=== PATIENT | female | born 1985 | race Caucasian/White ===

== ENCOUNTER 2017-05-20 08:53 | Emergency (ER) | payer OTHER ==
[~2017-05-20] VITALS: Ht 170.2 cm; Wt 86.3 kg
[2017-05-20 09:00] VITALS: BP 139/94
--- NOTE | 2017-05-20 09:09 | NUR ---
PT AMBULATED TO BED 4 AT THIS TIME.
--- NOTE | 2017-05-20 09:10 | NUR ---
32F BIB SELF C/O LEFT SIDED HEADACHE, BURNING, RADIATES TO LEFT SIDE OF FACE, 08/08 X 3 DAYS; PT DENIES TRUAMA OR INJURY TO SITE AT THIS TIME; STATES SLIGHT BLURRY VISION TO LEFT EYE, BUT STATES " I CAN SEE RIGHT NOW"; PT C/O NAUSEA/VOMITING/DIARRHEA AT THIS ITME; STATES HAD 3 EPISODES OF VOMITING TODAY, W/ 2 EPISODES OF DIARRHEA; ABDOMEN SOFT, NON-TENDER, ACTIVE BOWEL SOUNDS X 4 QUADRANTS; PT AA&OX4, PERRLA, BL LUNG SOUNDS CLEAR, RR EVEN/UNLABORED, SKIN IS WARM/DRY/INTACT AT THIS TIME; STEADY GAIT; PT RESTING IN BED W/ HOB ELEVATED AND IN LOWEST POSITION; POSITIONED FOR COMFORT; ER MD MADE AWARE OF STATUS. WILL CONTINUE TO MONITOR.
--- NOTE | 2017-05-20 09:11 | NUR ---
ER MD DR. BUNN EVALUATING PT AT BEDSIDE.
[2017-05-20] MEDS ORDERED: PROCHLORPERAZINE 10 MG/2 ML VIAL IVP ONE (09:15)
[2017-05-20] MEDS ORDERED: SUMAtriptan 6 MG/0.5 ML VIAL SUBQ ONE (09:15)
[2017-05-20] MEDS ORDERED: NACL 0.9% 1,000 ML IV ONE (09:15)
[2017-05-20] MEDS ORDERED: diphenhydrAMINE 50 MG/ML VIAL IVP ONE (09:15)
--- NOTE | 2017-05-20 09:28 | NUR ---
WARM BLANKET PROVIDED TO PT FOR COMFORT; PT APPEARS TO BE RESTING COMFORTABLY IN BED; RR EVEN/UNLABORED; WILL CONTINUE TO MONTIOR.
[2017-05-20] MEDS ORDERED: LORazepam 2 MG/ML VIAL IVP ONE (09:50)
--- NOTE | 2017-05-20 10:35 | NUR ---
IV removed, catheter intact and site benign. Applied folded 4x4 gauze and tape to stop bleeding. PT TOLERATED PROCEDURE WELL.
[2017-05-20 10:39] VITALS: BP 129/78
--- NOTE | 2017-05-20 10:39 | NUR ---
Patient discharged with v/s stable. Written and verbal after care instructions given and explained. Patient alert, oriented and verbalized understanding of instructions. Ambulatory with steady gait. All questions addressed prior to discharge. ID band removed. Patient advised to follow up with PMD. Rx of FLEXERIL 10MG TAB, COMPAZINE 10MG TAB & IMITREX 25MG TAB given. Patient educated on indication of medication including possible reaction and side effects. Opportunity to ask questions provided and answered.
== END 2017-05-20 10:39 | disposition home or self-care (01) ==
LOC: MED 08:53
DX: R51 Headache (principal); R11.2 Nausea with vomiting, unspecified; K21.9 Gastro-esophageal reflux disease without esophagitis; F41.9 Anxiety disorder, unspecified; Z88.3 Allergy status to other anti-infective agents
CPT/HCPCS: 81002; 81025; 93005; 96361; 96372; 96374; 96375; 99285; J0780; J1200; J2060; J3030; J7030; 99284

== ENCOUNTER 2017-06-20 18:08 | Emergency (ER) | payer OTHER ==
[~2017-06-20] VITALS: Ht 167.6 cm; Wt 86.2 kg
[2017-06-20 18:23] VITALS: BP 131/79
--- NOTE | 2017-06-20 18:30 | NUR ---
PATIENT PRESENTS TO ED WITH C/O LOWER ABD PAIN RADIATING TO HER BACK SINCE WEDNESDAY , WITH ANXIETY , DIARRHEA AND N/V SINCE 0700HOURS. DENIES DIARRHEA; SKIN IS PINK/WARM/DRY; AAOX4 WITH EVEN AND STEADY GAIT; LUNGS CLEAR BL; HR EVEN AND REGULAR; PT DENIES ANY FEVER, CP, SOB, OR COUGH AT THIS TIME; PATIENT STATES PAIN OF 8/10 AT THIS TIME; VSS; PATIENT POSITIONED FOR COMFORT; HOB ELEVATED; BEDRAILS UP X2; BED DOWN. ER MD MADE AWARE OF PT STATUS.
[2017-06-20] MEDS ORDERED: NACL 0.9% 1,000 ML IV ONE (18:45)
[2017-06-20] MEDS ORDERED: MORPHINE SULFATE 4 MG/ML SYR IVP ONE (18:45)
[2017-06-20] MEDS ORDERED: ONDANSETRON 4 MG/2 ML VIAL IVP ONE (18:45)
[2017-06-20 18:59] LABS: BASOPHILS # (AUTO) 0.4 K/uL (0.00-0.22); EOSINOPHILS # (AUTO) 0.3 K/uL (0-0.4); HEMOGLOBIN 15.3 g/dL (12.0-16.0); MEAN CORPUSCULAR HEMOGLOBIN 28 pg (27-31); MEAN CORPUSCULAR HGB CONC 33 g/dL (33-37); MEAN CORPUSCULAR VOLUME 87 fL (80-94); MONOCYTES # (AUTO) 0.8 K/uL (0.8-1.0); NEUTROPHILS # (AUTO) 7.4 K/uL (1.8-7.7); PLATELET COUNT (AUTO) 369 K/uL (140-450); RED BLOOD CELL COUNT(AUTO) 5.39 MIL/uL (4.20-5.40); WHITE BLOOD COUNT (AUTO) 11.9 K/uL (4.8-10.8)
[2017-06-20 19:08] LABS: APPEARANCE,URINE HAZY (CLEAR); BILIRUBIN,URINE NEGATIVE (NEGATIVE); BLOOD, URINE NEGATIVE (NEGATIVE); COLOR,URINE YELLOW (YELLOW); LEUKOCYTE ESTERASE ,URINE TRACE (NEGATIVE); NITRITE, URINE NEGATIVE (NEGATIVE); PH,URINE 8.5 (5.0-9.0); PROTEIN,URINE TRACE (NEGATIVE); UGLUCOSE NEGATIVE (NEGATIVE); UROBILINOGEN,URINE 0.2 EU/dL (0.2 - 1)
[2017-06-20 19:14] LABS: ANION GAP 11.6 (8-16); CALCIUM 9.2 mg/dL (8.5-10.1); CREATININE 0.9 mg/dL (0.6-1.3); POTASSIUM 3.6 mmol/L (3.5-5.1); TOTAL BILIRUBIN 0.9 mg/dL (0.0-1.0); TOTAL PROTEIN, SERUM 7.8 g/dL (6.4-8.2)
--- NOTE | 2017-06-20 19:15 | NUR ---
REPORT GIVEN RN PIN
--- NOTE | 2017-06-20 19:16 | NUR ---
GOT REPORT FROM MARILIA GONZALES. PT. C/O PAIN, DR. BISWAS MADE AWARE.
[2017-06-20] MEDS ORDERED: LORazepam 1 MG TAB PO ONE (19:20)
[2017-06-20] MEDS ORDERED: HYDROmorphone 1 MG/ML AMP IVP ONE ×2 (19:20→20:55)
[2017-06-20 19:48] LABS: BACTERIA,URINE 1-9 (FEW) /HPF (None Seen)
[2017-06-20 19:49] LABS: SQUAMOUS EPITHELIAL CELL,UR 4-10 (MOD) /LPF (0-3 (FEW))
--- NOTE | 2017-06-20 21:47 | NUR ---
Patient discharged with v/s stable. Written and verbal after care instructions given and explained. Patient alert, oriented and verbalized understanding of instructions. Ambulatory with steady gait. All questions addressed prior to discharge. ID band removed. Patient advised to follow up with PMD. Rx of NORCO 10/325 MG, ATIVAN 1 MG given. Patient educated on indication of medication including possible reaction and side effects. Opportunity to ask questions provided and answered.
[2017-06-20 21:51] VITALS: BP 131/82
== END 2017-06-20 21:47 | disposition home or self-care (01) ==
LOC: MED 18:08
DX: N83.201 Unspecified ovarian cyst, right side (principal); F41.9 Anxiety disorder, unspecified; K21.9 Gastro-esophageal reflux disease without esophagitis; Z88.1 Allergy status to other antibiotic agents; Z88.2 Allergy status to sulfonamides
CPT/HCPCS: 36415; 74176; 76705; 76830; 80053; 81001; 81025; 83690; 85025; 96361; 96374; 96375; 96376; 99285; J1170; J2270; J2405; J7030

== ENCOUNTER 2017-06-25 20:13 | Emergency (ER) | payer OTHER ==
[~2017-06-25] VITALS: Ht 167.6 cm; Wt 86.2 kg
[2017-06-25 20:46] VITALS: BP 131/75
[2017-06-25 21:41] LABS: APPEARANCE,URINE HAZY (CLEAR); BILIRUBIN,URINE NEGATIVE (NEGATIVE); BLOOD, URINE NEGATIVE (NEGATIVE); COLOR,URINE YELLOW (YELLOW); LEUKOCYTE ESTERASE ,URINE TRACE (NEGATIVE); NITRITE, URINE NEGATIVE (NEGATIVE); PH,URINE 7.5 (5.0-9.0); PROTEIN,URINE NEGATIVE (NEGATIVE); UGLUCOSE NEGATIVE (NEGATIVE); UROBILINOGEN,URINE 0.2 EU/dL (0.2 - 1)
[2017-06-25 21:57] LABS: BACTERIA,URINE 1+ /HPF (None Seen); RBC,URINE 0-5 /HPF (0-5); URINE AMORPHOUS PHOSPHATES 2+ /HPF (None Seen); WBC,URINE 0-5 /HPF (0-5)
[2017-06-25 22:34] LABS: BASOPHILS # (AUTO) 0.3 K/uL (0.00-0.22); BASOPHILS % (AUTO) 2.5 % (0.0-2.0); EOSINOPHILS # (AUTO) 0.2 K/uL (0-0.4); EOSINOPHILS % (AUTO) 2.1 % (0.0-4.0); HEMATOCRIT 45.2 % (36-48); LYMPHOCYTES # (AUTO) 2.2 K/uL (2.5-16.5); LYMPHOCYTES % (AUTO) 21.1 % (20.5-51.1); MEAN CORPUSCULAR HEMOGLOBIN 29 pg (27-31); MEAN CORPUSCULAR HGB CONC 33 g/dL (33-37); MEAN CORPUSCULAR VOLUME 87 fL (80-94); MONOCYTES # (AUTO) 0.5 K/uL (0.8-1.0); MONOCYTES % (AUTO) 4.4 % (1.7-9.3); NEUTROPHILS # (AUTO) 7.4 K/uL (1.8-7.7); NEUTROPHILS % (AUTO) 69.9 % (42.2-75.2); PLATELET COUNT (AUTO) 335 K/uL (140-450); RED BLOOD CELL COUNT(AUTO) 5.18 MIL/uL (4.20-5.40); RED CELL DISTRIBUTION WIDTH 12.4 % (11.6-13.7); WHITE BLOOD COUNT (AUTO) 10.6 K/uL (4.8-10.8)
[2017-06-25 22:56] LABS: ANION GAP 11.7 (8-16); CALCIUM 8.4 mg/dL (8.5-10.1); CARBON DIOXIDE 28.4 mmol/L (21-32); CREATININE 0.7 mg/dL (0.6-1.3); POTASSIUM 4.1 mmol/L (3.5-5.1); TOTAL BILIRUBIN 0.9 mg/dL (0.0-1.0); TOTAL PROTEIN, SERUM 8.1 g/dL (6.4-8.2)
--- NOTE | 2017-06-26 02:52 | NUR ---
AMBULATED TO ER BED 8
--- NOTE | 2017-06-26 02:55 | NUR ---
32Y F BIB SELF C/O ABDOMINAL PAIN X 1 WK. PT. WAS SEEN ON 06/20 WITH PANIC ATTACKS. HX. ANXIETY. PT DENIES ANY N/V/D, SOB, CP AT THE MOMENT. BREATHING IS UNLABORED AND CLEAR BILAT. AAOX4.
--- NOTE | 2017-06-26 03:00 | NUR ---
Patient being evaluated by physician at bedside.
[2017-06-26] MEDS ORDERED: ONDANSETRON 4 MG ODT PO ONE (03:05)
[2017-06-26] MEDS ORDERED: LORazepam 1 MG TAB PO ONE (03:05)
[2017-06-26] MEDS ORDERED: KETOROLAC 60 MG/2 ML VIAL IM ONE (03:05)
[2017-06-26] MEDS ORDERED: HYDROmorphone PFS 2 MG/ML SYR IVP ONE (05:00)
--- NOTE | 2017-06-26 05:00 | NUR ---
FEMALE CHAPERONED FOR DR. DUNN DURING PELVIC EXAM
[2017-06-26] MEDS ORDERED: cefTRIAXone 250 MG VIAL ONE (05:46)
--- NOTE | 2017-06-26 06:01 | NUR ---
Patient discharged with v/s stable. Written and verbal after care instructions given and explained. Patient alert, oriented and verbalized understanding of instructions. Ambulatory with steady gait. All questions addressed prior to discharge. ID band removed. Patient advised to follow up with PMD. Rx of DIFLUCAN 150MG AND FLAGYL 500MG, DOXYCYCLINE 100MG, NORCO 5/325MG given. Patient educated on indication of medication including possible reaction and side effects. Opportunity to ask questions provided and answered.
--- NOTE | 2017-06-26 06:01 | NUR ---
IV removed, catheter intact and site benign. Applied folded 4x4 gauze and tape to stop bleeding.
[2017-06-26 06:02] VITALS: BP 122/71
== END 2017-06-26 06:02 | disposition home or self-care (01) ==
LOC: MED 20:13
DX: N73.9 Female pelvic inflammatory disease, unspecified (principal); B37.3 Candidiasis of vulva and vagina; Z88.1 Allergy status to other antibiotic agents; Z88.2 Allergy status to sulfonamides; K21.9 Gastro-esophageal reflux disease without esophagitis; Z90.49 Acquired absence of other specified parts of digestive tract
CPT/HCPCS: 36415; 80053; 81001; 81025; 82150; 83690; 85025; 87210; 96365; 96372; 96375; 99284; J0696; J1170; J1885; J7060; S0119

== ENCOUNTER 2019-02-17 17:32 | Emergency (ER) | payer OTHER ==
[~2019-02-17] VITALS: Ht 167.6 cm; Wt 86.2 kg
[2019-02-17 17:50] VITALS: BP 121/81
--- NOTE | 2019-02-17 17:55 | NUR ---
PT TRIAGED AND SENT TO ER LOBBY, URINE CUP GIVEN.
--- NOTE | 2019-02-17 20:09 | NUR ---
PT WAS CALLED WITH NO ANSWER, PT LWBS
--- NOTE | 2019-02-17 20:20 | NUR ---
PT WAS CALLED FROM THE LOBBY FOR THE 2ND TIME BUT NO RESPONSE, PT LWBS
--- NOTE | 2019-02-17 20:22 | NUR ---
PATIENT LEFT WITHOUT BEING SEEN BY DR. SHAH. NO FURTHER CARE PROVIDED FOR PATIENT.
== END 2019-02-17 20:09 | disposition left against medical advice (07) ==
LOC: MED 17:32
DX: R10.2 Pelvic and perineal pain (principal); Z53.21 Procedure and treatment not carried out due to patient leaving prior to being seen by health care provider

== ENCOUNTER 2019-03-20 21:58 | Emergency (ER) | payer OTHER ==
[~2019-03-20] VITALS: Ht 167.6 cm; Wt 79.4 kg
[2019-03-20 22:02] VITALS: BP 117/80
--- NOTE | 2019-03-20 22:02 | NUR ---
Cayetano gallagher in [facility] - 03/20/19 at 2212 by YULISA TO BED # 02 AMBULATORY , REPORT GIVEN TO LISA CAPELLAN
--- NOTE | 2019-03-20 22:07 | NUR ---
PT AMBULATED TO BED 4.
--- NOTE | 2019-03-20 22:16 | NUR ---
BIB SELF WITH REPORT OF ANXIETY AND ABD PAIN WITH N/V FOR 3 DAYS. STATES IT IS WORSE TODAY AND IS ACCOMPANIED BY DIARRHEA. STATES SHE HAS VOMITED 2X TODAY. REPORTS 10/10 PELVIC PAIN AND A HEADACHE. DENIES FEVER, SOB, CP. BED IN LOW LOCKED POSITION, ERMD MADE AWARE OF STATUS.
--- NOTE | 2019-03-20 23:17 | NUR ---
DR ROSALES AT BEDSIDE.
[2019-03-20] MEDS ORDERED: ONDANSETRON 4 MG ODT PO ONE (23:20)
[2019-03-20] MEDS ORDERED: KETOROLAC 60 MG/2 ML VIAL IM ONE (23:20)
[2019-03-20 23:41] LABS: BASOPHILS % (AUTO) 0.2 % (0.0-2.0); EOSINOPHILS # (AUTO) 0.2 K/uL (0-0.4); EOSINOPHILS % (AUTO) 2.8 % (0.0-4.0); HEMATOCRIT 41.4 % (36-48); LYMPHOCYTES # (AUTO) 2.6 K/uL (2.5-16.5); LYMPHOCYTES % (AUTO) 28.2 % (20.5-51.1); MEAN CORPUSCULAR HEMOGLOBIN 29 pg (27-31); MEAN CORPUSCULAR HGB CONC 34 g/dL (33-37); MEAN CORPUSCULAR VOLUME 86.4 fL (80-94); MONOCYTES # (AUTO) 0.7 K/uL (0.8-1.0); MONOCYTES % (AUTO) 7.9 % (1.7-9.3); NEUTROPHILS # (AUTO) 5.5 K/uL (1.8-7.7); NEUTROPHILS % (AUTO) 60.9 % (42.2-75.2); PLATELET COUNT (AUTO) 304 K/uL (140-450); RED BLOOD CELL COUNT(AUTO) 4.79 MIL/uL (4.20-5.40); RED CELL DISTRIBUTION WIDTH 13.1 % (11.6-13.7); WHITE BLOOD COUNT (AUTO) 9.1 K/uL (4.8-10.8)
--- NOTE | 2019-03-21 00:40 | NUR ---
PATIENT COMPLAINING OF PAIN, DR ROSALES MADE AWARE.
--- NOTE | 2019-03-21 00:45 | NUR ---
DR ROSALES AT BEDSIDE.
[2019-03-21] MEDS ORDERED: fentaNYL 0.05 MG/ML VIAL IM ONE (01:00)
[2019-03-21 01:17] VITALS: BP 117/80
--- NOTE | 2019-03-21 01:18 | NUR ---
Patient discharged with v/s stable. Written and verbal after care instructions given and explained. Patient alert, oriented and verbalized understanding of instructions. Ambulatory with steady gait. All questions addressed prior to discharge. ID band removed. Patient advised to follow up with PMD. Rx of TRAMADOL, MOTRIN given. Patient educated on indication of medication including possible reaction and side effects. Opportunity to ask questions provided and answered.
== END 2019-03-21 01:17 | disposition home or self-care (01) ==
LOC: MED 21:58
DX: N83.202 Unspecified ovarian cyst, left side (principal); K21.9 Gastro-esophageal reflux disease without esophagitis; F41.9 Anxiety disorder, unspecified; F32.9 Major depressive disorder, single episode, unspecified; M79.7 Fibromyalgia; Z88.2 Allergy status to sulfonamides; Z88.8 Allergy status to other drugs, medicaments and biological substances
CPT/HCPCS: 36415; 76856; 85025; 96372; 99284; J1885; J3010; Q0092; Q0162

== ENCOUNTER 2019-04-09 03:46 | Emergency (ER) | payer OTHER ==
[~2019-04-09] VITALS: Ht 167.6 cm; Wt 82.1 kg
[2019-04-09 03:49] VITALS: BP 125/85
--- NOTE | 2019-04-09 03:52 | NUR ---
TO ED 07 WITH STEADY GAIT, REPORT TO MARILIA BUSTAMANTE.
--- NOTE | 2019-04-09 04:05 | NUR ---
34 YO F BIB SELF PRESENTS TO ED C/O 09/07 BILATERAL LOWER ABD PAIN THAT RADIATES INTO LOWER RIGHT BACK ACCOMPANIED BY N/V R/T OVARIAN CYSTS X 3 HOURS. PT STATES SHE WAS SEEN IN [place] ED 2 WEEKS AGO FOR SIMILAR S/SX AND WAS DIAGNOSED WITH OVARIAN CYSTS. SHE REPORTS THAT SHE WAS SCHEDULED FOR SURGERY ON WEDNESDAY WITH HER OB DOCTOR BUT THE PROCEDURE WAS POSTPONED. SHE WAS ALSO TOLD TO RETURN TO THE ER IF THE PAIN BECAME WORSE. PT STATES SHE TOOK TRAMADOL 50 MG WHEN THE PAIN BEGAN AROUND 0100 AND IT HAS NOT BEEN EFFECTIVE. PT ALSO REPORTS N/V. -- LMP: YESTERDAY -- PMH: FIBROMYALGIA, DEPRESSION, ANXIETY
[2019-04-09] MEDS ORDERED: ONDANSETRON 4 MG/2 ML VIAL IVP ONE (04:10)
[2019-04-09] MEDS ORDERED: NACL 0.9% 1,000 ML IV ONE (04:10)
[2019-04-09] MEDS ORDERED: MORPHINE SULFATE 4 MG/ML SYR IVP ONE (04:10)
--- NOTE | 2019-04-09 04:30 | NUR ---
PT RECEIVED 2 MG IVP ZOFRAN FOR N/V AND 4 MG IVP MORPHINE FOR 10/10 PAIN. WILL CONTINUE TO MONITOR FOR EFFECTIVENESS.
--- NOTE | 2019-04-09 04:33 | NUR ---
LAB AND URINE SPECIMEN WALKED TO LAB BY RN, GIVEN TO DNART LIMITADA.
--- NOTE | 2019-04-09 04:33 | NUR ---
LABS DRAWN AT BEDSIDE BY RN.
[2019-04-09 04:38] LABS: BASOPHILS % (AUTO) 0.3 % (0.0-2.0); EOSINOPHILS # (AUTO) 0.2 K/uL (0-0.4); EOSINOPHILS % (AUTO) 1.8 % (0.0-4.0); HEMATOCRIT 37.6 % (36-48); HEMOGLOBIN 12.9 g/dL (12.0-16.0); LYMPHOCYTES # (AUTO) 2.1 K/uL (2.5-16.5); LYMPHOCYTES % (AUTO) 21.2 % (20.5-51.1); MEAN CORPUSCULAR HEMOGLOBIN 29 pg (27-31); MEAN CORPUSCULAR HGB CONC 34 g/dL (33-37); MEAN CORPUSCULAR VOLUME 85.6 fL (80-94); MONOCYTES # (AUTO) 0.8 K/uL (0.8-1.0); NEUTROPHILS # (AUTO) 6.8 K/uL (1.8-7.7); NEUTROPHILS % (AUTO) 68.7 % (42.2-75.2); PLATELET COUNT (AUTO) 294 K/uL (140-450); RED BLOOD CELL COUNT(AUTO) 4.39 MIL/uL (4.20-5.40); RED CELL DISTRIBUTION WIDTH 12.7 % (11.6-13.7); WHITE BLOOD COUNT (AUTO) 9.9 K/uL (4.8-10.8)
--- NOTE | 2019-04-09 04:45 | NUR ---
US AT BEDSIDE.
[2019-04-09 04:47] LABS: APPEARANCE,URINE HAZY (CLEAR); BILIRUBIN,URINE NEGATIVE (NEGATIVE); BLOOD, URINE NEGATIVE (NEGATIVE); COLOR,URINE YELLOW (YELLOW); LEUKOCYTE ESTERASE ,URINE 2+ (NEGATIVE); NITRITE, URINE NEGATIVE (NEGATIVE); UGLUCOSE NEGATIVE (NEGATIVE)
[2019-04-09 04:49] LABS: ANION GAP 11.4 (8-16); CARBON DIOXIDE 27.4 mmol/L (21-32); CREATININE 0.6 mg/dL (0.6-1.3); POTASSIUM 3.8 mmol/L (3.5-5.1)
[2019-04-09 04:55] LABS: ALBUMIN 3.2 g/dL (3.4-5.0); TOTAL BILIRUBIN 0.9 mg/dL (0.0-1.0)
[2019-04-09 04:56] LABS: RBC,URINE 0-5 /HPF (0-5)
--- NOTE | 2019-04-09 05:11 | NUR ---
PT IS CRYING AND REPORTS 09/07 PAIN. MORPHINE INEFFECTIVE. PT REPORTS ZOFRAN RELIEVED NAUSEA. Addendum: 04/09/19 at 0533 by [facility] DR. PHILLIP MADE AWARE.
[2019-04-09] MEDS ORDERED: KETOROLAC 15 MG/ML VIAL IVP ONE (05:40)
--- NOTE | 2019-04-09 05:45 | NUR ---
PT RECEIVED TORADOL 15 MG IVP FOR 10/10 PAIN. WILL CONTINUE TO MONITOR.
[2019-04-09] MEDS ORDERED: cefTRIAXone 1,000 MG VIAL ONE (05:53)
[2019-04-09] MEDS ORDERED: fentaNYL 0.05 MG/ML VIAL IVP ONE (06:20)
--- NOTE | 2019-04-09 06:20 | NUR ---
TORADOL NOT EFFECTIVE. PT REPORTS [address] PHILLIP TO SEE PATIENT.
--- NOTE | 2019-04-09 06:33 | NUR ---
PT RECEIVED 0.025 MG IVP FENTANYL FOR 10/10 PAIN. WILL CONTINUE TO MONITOR FOR EFFECTIVENESS.
--- NOTE | 2019-04-09 06:55 | NUR ---
FENTANYL EFFECTIVE. PT REPORTS 4/10 PAIN. READY FOR DISCHARGE.
[2019-04-09 07:00] VITALS: BP 107/68
--- NOTE | 2019-04-09 07:00 | NUR ---
Patient discharged with v/s stable. Written and verbal after care instructions given and explained. Patient alert, oriented and verbalized understanding of instructions. Ambulatory with steady gait. All questions addressed prior to discharge. ID band removed. Patient advised to follow up with PMD. Rx of Ciproflaxacin and Tylenol given. Patient educated on indication of medication including possible reaction and side effects. Opportunity to ask questions provided and answered.
== END 2019-04-09 07:00 | disposition home or self-care (01) ==
LOC: MED 03:46
DX: N12 Tubulo-interstitial nephritis, not specified as acute or chronic (principal); K21.9 Gastro-esophageal reflux disease without esophagitis; M79.7 Fibromyalgia; F32.9 Major depressive disorder, single episode, unspecified; F41.9 Anxiety disorder, unspecified; Z88.2 Allergy status to sulfonamides; Z88.8 Allergy status to other drugs, medicaments and biological substances
CPT/HCPCS: 36415; 76856; 80053; 81001; 81025; 85025; 87086; 93976; 96361; 96365; 96375; 99284; J0696; J1885; J2270; J2405; J3010; J7030; J7060; Q0092

== ENCOUNTER 2019-04-11 08:55 | Emergency (ER) | payer OTHER ==
[~2019-04-11] VITALS: Ht 167.6 cm; Wt 81.6 kg
[2019-04-11 09:09] VITALS: BP 131/87
--- NOTE | 2019-04-11 09:22 | NUR ---
c/o recurring right flank pain radiating suprapubic area with dysuria burning sharp pain upon voiding--- admits to upcoming appt with earth mover possible ovary removal and D&C
--- NOTE | 2019-04-11 10:27 | NUR ---
pt to radiology via wheelchair
[2019-04-11 10:40] LABS: BASOPHILS % (AUTO) 0.3 % (0.0-2.0); EOSINOPHILS # (AUTO) 0.3 K/uL (0-0.4); EOSINOPHILS % (AUTO) 3.7 % (0.0-4.0); HEMATOCRIT 39.5 % (36-48); HEMOGLOBIN 13.4 g/dL (12.0-16.0); LYMPHOCYTES # (AUTO) 2.4 K/uL (2.5-16.5); LYMPHOCYTES % (AUTO) 30.1 % (20.5-51.1); MEAN CORPUSCULAR HEMOGLOBIN 29 pg (27-31); MEAN CORPUSCULAR HGB CONC 34 g/dL (33-37); MEAN CORPUSCULAR VOLUME 85.8 fL (80-94); MONOCYTES # (AUTO) 0.8 K/uL (0.8-1.0); MONOCYTES % (AUTO) 10.3 % (1.7-9.3); NEUTROPHILS # (AUTO) 4.5 K/uL (1.8-7.7); NEUTROPHILS % (AUTO) 55.6 % (42.2-75.2); PLATELET COUNT (AUTO) 289 K/uL (140-450); RED CELL DISTRIBUTION WIDTH 12.6 % (11.6-13.7); WHITE BLOOD COUNT (AUTO) 8.1 K/uL (4.8-10.8)
[2019-04-11 10:52] LABS: ANION GAP 11.5 (8-16); CARBON DIOXIDE 27.7 mmol/L (21-32); CREATININE 0.7 mg/dL (0.6-1.3); POTASSIUM 4.2 mmol/L (3.5-5.1)
[2019-04-11 10:58] LABS: ALBUMIN 3.4 g/dL (3.4-5.0); TOTAL BILIRUBIN 0.4 mg/dL (0.0-1.0)
--- NOTE | 2019-04-11 11:00 | NUR ---
continue to wait for dispo---pt had been asleep when approached, easy to awaken admits to pain right flank when asked---md notified
[2019-04-11 11:28] LABS: APPEARANCE,URINE CLEAR (CLEAR); BILIRUBIN,URINE NEGATIVE (NEGATIVE); BLOOD, URINE NEGATIVE (NEGATIVE); COLOR,URINE YELLOW (YELLOW); LEUKOCYTE ESTERASE ,URINE 1+ (NEGATIVE); NITRITE, URINE NEGATIVE (NEGATIVE); UGLUCOSE NEGATIVE (NEGATIVE)
[2019-04-11 12:00] LABS: RBC,URINE NONE SEEN /HPF (0-5); WBC,URINE 0-5 /HPF (0-5); YEAST,URINE Rare /HPF (None Seen)
[2019-04-11 12:16] VITALS: BP 131/87
--- NOTE | 2019-04-11 12:16 | NUR ---
Patient discharged with v/s stable. Written and verbal after care instructions given and explained. Patient alert, oriented and verbalized understanding of instructions. Ambulatory with steady gait. All questions addressed prior to discharge. ID band removed. Patient advised to follow up with PMD. Rx of mag citrate/miralax given. Patient educated on indication of medication including possible reaction and side effects. Opportunity to ask questions provided and answered.
== END 2019-04-11 12:16 | disposition home or self-care (01) ==
LOC: MED 08:55
DX: K59.00 Constipation, unspecified (principal); K21.9 Gastro-esophageal reflux disease without esophagitis; E07.9 Disorder of thyroid, unspecified; Z88.2 Allergy status to sulfonamides; Z88.8 Allergy status to other drugs, medicaments and biological substances
CPT/HCPCS: 36415; 74021; 80053; 81001; 81025; 83690; 84703; 85025; 87086; 99284

== ENCOUNTER 2019-09-21 19:00 | Emergency (ER) | payer OTHER ==
[~2019-09-21] VITALS: Ht 167.6 cm; Wt 78.0 kg
[2019-09-21 19:10] VITALS: BP 111/86
[2019-09-21 20:16] LABS: BASOPHILS % (AUTO) 0.2 % (0.0-2.0); EOSINOPHILS # (AUTO) 0.2 K/uL (0-0.4); HEMATOCRIT 43.5 % (36-48); HEMOGLOBIN 14.5 g/dL (12.0-16.0); LYMPHOCYTES # (AUTO) 1.9 K/uL (2.5-16.5); LYMPHOCYTES % (AUTO) 25.2 % (20.5-51.1); MEAN CORPUSCULAR HEMOGLOBIN 29 pg (27-31); MEAN CORPUSCULAR HGB CONC 33 g/dL (33-37); MONOCYTES # (AUTO) 0.5 K/uL (0.8-1.0); MONOCYTES % (AUTO) 6.9 % (1.7-9.3); NEUTROPHILS # (AUTO) 4.8 K/uL (1.8-7.7); NEUTROPHILS % (AUTO) 64.7 % (42.2-75.2); PLATELET COUNT (AUTO) 320 K/uL (140-450); RED BLOOD CELL COUNT(AUTO) 4.95 MIL/uL (4.20-5.40); RED CELL DISTRIBUTION WIDTH 12.9 % (11.6-13.7); WHITE BLOOD COUNT (AUTO) 7.4 K/uL (4.8-10.8)
[2019-09-21] MEDS ORDERED: MORPHINE SULFATE 4 MG/ML SYR IVP ONE ×2 (20:20→21:35)
[2019-09-21] MEDS ORDERED: NACL 0.9% 1,000 ML IV ONE (20:20)
[2019-09-21] MEDS ORDERED: ONDANSETRON 4 MG/2 ML VIAL IVP ONE (20:20)
--- NOTE | 2019-09-21 20:30 | NUR ---
34 Y/O F PRESENTS TO ED WITH C/O N/V/D X1 MONTH, WORSENING WITHIN LAST WEEK. AAOX4. PER PT "I HAD THE STOMACH FLU A MONTH AGO AND IT JUST WONT GO AWAY." PT HAS RLQ PAIN RELATED TO OVARIAN CYST, 9/10 PAIN. +APPETITE CHANGES. ABDOMEN NON-TENDER. BOWELS SOUNDS PRESENT X4. PT ATTACHED TO MONITORING SYSTEM. BEDRAILS X2 UP. WILL CONTINUE TO MONITOR.
[2019-09-21 20:31] LABS: ANION GAP 13.9 (8-16); CARBON DIOXIDE 26.9 mmol/L (21-32); CREATININE 0.6 mg/dL (0.6-1.3); POTASSIUM 3.8 mmol/L (3.5-5.1)
[2019-09-21 20:35] LABS: ALBUMIN 4.1 g/dL (3.4-5.0); TOTAL BILIRUBIN 1.3 mg/dL (0.0-1.0)
--- NOTE | 2019-09-21 20:51 | NUR ---
PT O2 SATURATION AT 92% ON RA. PT PLACED ON 2L O2 VIA NASAL CANNULA. O2 SATURATION INCREASED AND MAINTAINED AT 98%.
--- NOTE | 2019-09-21 21:05 | NUR ---
PT PAIN LEVEL UNCHANGED, STILL 9/10 PAIN. ERMD MADE AWARE.
--- NOTE | 2019-09-21 21:36 | NUR ---
PT TAKEN TO CT VIA WHEELCHAIR.
--- NOTE | 2019-09-21 21:50 | NUR ---
PT RETURN FROM CT
--- NOTE | 2019-09-21 23:00 | NUR ---
PT CRYING. STILL C/O INCREASED PAIN. ERMD MADE AWARE.
[2019-09-21] MEDS ORDERED: KETAMINE 10 MG/ML UD SYR **ER IVP ONE (23:50)
--- NOTE | 2019-09-22 00:01 | NUR ---
Dr. Gibson examining patient.
--- NOTE | 2019-09-22 00:48 | NUR ---
LAVAGE PROCEDURE PERFORMED ON PT L EAR
[2019-09-22 01:01] VITALS: BP 131/45
--- NOTE | 2019-09-22 01:22 | NUR ---
Patient discharged with v/s stable. Written and verbal after care instructions given and explained. Patient alert, oriented and verbalized understanding of instructions. Ambulatory with steady gait.Pt driven home by . All questions addressed prior to discharge. ID band removed. Patient advised to follow up with PMD. Rx of norco given. Patient educated on indication of medication including possible reaction and side effects. Opportunity to ask questions provided and answered.
--- NOTE | 2019-09-22 08:44 | NUR ---
Late entry. Confirmed with RN that 1000ml 0.9 NS IV completed at [id number]
== END 2019-09-22 01:22 | disposition home or self-care (01) ==
LOC: MED 19:00
DX: N83.201 Unspecified ovarian cyst, right side (principal); R19.7 Diarrhea, unspecified; K21.9 Gastro-esophageal reflux disease without esophagitis; Z87.42 Personal history of other diseases of the female genital tract; Z88.1 Allergy status to other antibiotic agents; Z88.8 Allergy status to other drugs, medicaments and biological substances; Z88.2 Allergy status to sulfonamides; Z98.890 Other specified postprocedural states
CPT/HCPCS: 36415; 74176; 80053; 81025; 83690; 85025; 96361; 96374; 96375; 96376; 99284; J2270; J2405; J7030

== ENCOUNTER 2019-09-23 19:45 | Emergency (ER) | payer OTHER ==
[~2019-09-23] VITALS: Ht 167.6 cm; Wt 77.1 kg
[2019-09-23 19:50] VITALS: BP 126/84
--- NOTE | 2019-09-23 19:53 | NUR ---
to lobby a/w bed ambulatory
--- NOTE | 2019-09-23 20:11 | NUR ---
PT AMBULATED TO BED 08.
--- NOTE | 2019-09-23 20:15 | NUR ---
34 Y/O FEMALE PRESENTS TO ED, C/O OF DIZZINESS. PT STATES SHE WAS PRESCRIBED KETAMINE LAST WEDNESDAY AND TOOK A DOSE PRIOR TO FEELING THE DIZZINESS. PT DENIES ANY HEADACHE. PT DENIES ANY LOC. PT VSS. ERMD AWARE. WILL CONTINUE TO MONITOR.
[2019-09-23 20:50] VITALS: BP 121/71
--- NOTE | 2019-09-23 20:50 | NUR ---
PT DISCHARGED WITH PAPERWORK. RX ATARAX. EDUCATED PT REGARDING MEDICATION AND S/E. EDUCATED PT REGARDING D/C DIAGNOSIS AND INSTRUCTIONS. PT VERBALIZED UNDERSTANDING OF TEACHING. TOLD PT TO FOLLOW UP WITH PCP AND WHEN TO RETURN TO ED. PT VSS. ALL QUESTIONS ANSWERED.
== END 2019-09-23 20:50 | disposition home or self-care (01) ==
LOC: MED 19:45
DX: N83.201 Unspecified ovarian cyst, right side (principal); K21.9 Gastro-esophageal reflux disease without esophagitis; R06.02 Shortness of breath; Z88.1 Allergy status to other antibiotic agents; Z88.8 Allergy status to other drugs, medicaments and biological substances; Z90.49 Acquired absence of other specified parts of digestive tract; Z98.890 Other specified postprocedural states; Z86.39 Personal history of other endocrine, nutritional and metabolic disease
CPT/HCPCS: 81002; 81025; 99283

== ENCOUNTER 2019-10-14 08:30 | Emergency (ER) | payer SELFPAY ==
[~2019-10-14] VITALS: Ht 167.6 cm; Wt 80.7 kg
[2019-10-14 08:43] VITALS: BP 108/77
--- NOTE | 2019-10-14 08:51 | NUR ---
PATIENT AMBULATED WITH ASSISTANCE TO BED 3.
--- NOTE | 2019-10-14 09:14 | NUR ---
34/F C/O CONTINUOUS PELVIC AND BACK PAIN SINCE AGE 16 DUE TO ENDOMETROSIS BUT WORSENING AFTER LAPAROSCOPIC SURGERY WITH REMOVAL OF OVARIAN CYST IN 04/2019. STATES RT SIDED PELVIC PAIN. PT ADDS SHE HAD A FALL OCTOBER 01 WHERE SHE LANDED ON HER COCCYX AND BACK, DENIES LOC. STATES HAS BEEN HAVING N/V/D AND DIZZINESS SINCE THE FALL. ESTIMATES NONBLOODY 5X VOMITTING AND 10X DIARRHEA ON WORST DAYS. ALSO STATES HAS EPIGASTRIC PAIN SINCE THE FALL. PT IS AMBULATORY WITHOUT ASSIST. DENIES FEVER BUT STATES OCCASIONAL CHILLS. PAIN 10/10 PMH- ENDOMETROSIS, ANXIETY, DEPRESSION GALLBLADDER REMOVED 2007, OVARIAN CYST REMOVED APRIL
--- NOTE | 2019-10-14 09:39 | NUR ---
DR. CREWS AT BEDSIDE.
[2019-10-14] MEDS ORDERED: NACL 0.9% 1,000 ML IV ONE (09:46)
[2019-10-14] MEDS ORDERED: NACL 0.9% 1,000 ML IV SCH (09:46)
--- NOTE | 2019-10-14 10:14 | NUR ---
PT TAKEN FOR CT SCAN VIA WHEELCHAIR.
--- NOTE | 2019-10-14 10:24 | NUR ---
WALKED URINE AND BLOOD DRAW TO LAB.
--- NOTE | 2019-10-14 10:26 | NUR ---
PT BACK FROM CT VIA WHEELCHAIR
--- NOTE | 2019-10-14 10:29 | NUR ---
DR. CREWS SPEAKING WITH PATIENT AT BEDSIDE.
[2019-10-14 10:36] LABS: BASOPHILS % (AUTO) 0.6 % (0.0-2.0); EOSINOPHILS # (AUTO) 0.4 K/uL (0-0.4); EOSINOPHILS % (AUTO) 4.5 % (0.0-4.0); HEMATOCRIT 41.6 % (36-48); HEMOGLOBIN 13.9 g/dL (12.0-16.0); LYMPHOCYTES # (AUTO) 2.6 K/uL (2.5-16.5); LYMPHOCYTES % (AUTO) 29.3 % (20.5-51.1); MEAN CORPUSCULAR HEMOGLOBIN 29 pg (27-31); MEAN CORPUSCULAR HGB CONC 34 g/dL (33-37); MEAN CORPUSCULAR VOLUME 87.6 fL (80-94); MONOCYTES # (AUTO) 0.7 K/uL (0.8-1.0); MONOCYTES % (AUTO) 7.7 % (1.7-9.3); NEUTROPHILS # (AUTO) 5.1 K/uL (1.8-7.7); NEUTROPHILS % (AUTO) 57.9 % (42.2-75.2); PLATELET COUNT (AUTO) 349 K/uL (140-450); RED BLOOD CELL COUNT(AUTO) 4.74 MIL/uL (4.20-5.40); RED CELL DISTRIBUTION WIDTH 12.7 % (11.6-13.7); WHITE BLOOD COUNT (AUTO) 8.9 K/uL (4.8-10.8)
--- NOTE | 2019-10-14 10:37 | NUR ---
US AT BEDSIDE.
[2019-10-14 10:47] LABS: APPEARANCE,URINE CLEAR (CLEAR); BARBITURATE, URINE NEG. ng/ml (NEG <=200); BENZODIAZEPINE, URINE POS. ng/mL (NEG <=200); BILIRUBIN,URINE NEGATIVE (NEGATIVE); BLOOD, URINE NEGATIVE (NEGATIVE); CANNABINOID, URINE NEG. ng/mL (NEG <=50); COCAINE, URINE NEG. ng/mL (NEG <=300); COLOR,URINE YELLOW (YELLOW); LEUKOCYTE ESTERASE ,URINE 1+ (NEGATIVE); NITRITE, URINE NEGATIVE (NEGATIVE); OPIATE, URINE NEG. ng/mL (NEG <=2000); PHENCYCLIDINE SCREEN,URINE NEG. ng/mL (NEG <=25); UGLUCOSE NEGATIVE (NEGATIVE)
[2019-10-14] MEDS ORDERED: diphenhydrAMINE 50 MG/ML VIAL IVP ONE (11:10)
[2019-10-14 11:16] LABS: RBC,URINE NONE SEEN /HPF (0-5); WBC,URINE 0-5 /HPF (0-5)
[2019-10-14 11:16] LABS: ANION GAP 11.8 (8-16); CARBON DIOXIDE 28.9 mmol/L (21-32); CREATININE 0.7 mg/dL (0.6-1.3); POTASSIUM 3.7 mmol/L (3.5-5.1)
[2019-10-14 11:22] LABS: ALBUMIN 3.7 g/dL (3.4-5.0); TOTAL BILIRUBIN 0.8 mg/dL (0.0-1.0)
[2019-10-14] MEDS ORDERED: cefTRIAXone 1,000 MG VIAL ONE (11:25)
--- NOTE | 2019-10-14 11:56 | NUR ---
NOTIFIED DR. CREWS THAT PT STATES 09/07 PAIN AND REQUESTING PAIN MED. PER DR. CREWS, WILL D/C HOME WITH PAIN MED BUT NO PLAN FOR PAIN MED ADMINISTRATION HERE. WILL NOTIFY PT.
--- NOTE | 2019-10-14 13:35 | NUR ---
Patient discharged with v/s stable. Written and verbal after care instructions given and explained. Patient alert, oriented and verbalized understanding of instructions. Ambulatory with steady gait. All questions addressed prior to discharge. ID band removed. Patient advised to follow up with PMD. Rx of CIPRO AND TRAMADOL given. Patient educated on indication of medication including possible reaction and side effects. Opportunity to ask questions provided and answered.
[2019-10-14 13:36] VITALS: BP 108/65
--- NOTE | 2019-10-16 12:50 | NUR ---
Late entry. Confirmed with RN that 0.9 NS 100 ml/hr IV completed at 1330
== END 2019-10-14 13:35 | disposition home or self-care (01) ==
LOC: MED 08:30
DX: N39.0 Urinary tract infection, site not specified (principal); R42 Dizziness and giddiness; R10.2 Pelvic and perineal pain; N30.90 Cystitis, unspecified without hematuria; K21.9 Gastro-esophageal reflux disease without esophagitis; F41.9 Anxiety disorder, unspecified; F32.9 Major depressive disorder, single episode, unspecified; Z88.2 Allergy status to sulfonamides; Z87.19 Personal history of other diseases of the digestive system; Z88.8 Allergy status to other drugs, medicaments and biological substances; Z79.899 Other long term (current) drug therapy; Z90.49 Acquired absence of other specified parts of digestive tract
CPT/HCPCS: 36415; 74176; 76856; 80053; 80305; 81001; 81025; 82150; 83690; 85025; 87086; 96361; 96365; 96375; 99284; J0696; J1200; J7030; J7060; Q0092

== ENCOUNTER 2019-10-29 10:43 | Emergency (ER) | payer SELFPAY ==
[~2019-10-29] VITALS: Ht 167.6 cm; Wt 77.1 kg
[2019-10-29 10:49] VITALS: BP 128/91
--- NOTE | 2019-10-29 10:52 | NUR ---
KARLA PATTERSON. SENT TO LOB, AWAITING BED IN ED. VSS.
--- NOTE | 2019-10-29 11:16 | NUR ---
PT AMBULATED TO BED 11
--- NOTE | 2019-10-29 11:34 | NUR ---
C/O RT PELVIC PAIN RADIATING TO BACK WITH N/V SINCE WEDNESDAY. HAS SIMILAR RT PELVIC PAIN BEFORE DUE TO HX- R OVARIAN CYST. PT REPORTS PAIN STARTED RADIATING TO RT BACK YDAY WHICH SHE HAS NEVER EXPERIENCED. PELVIC PAIN IS SHARP AND RT BACK PAIN IS BURNING. LBM TODAY, NORMALLY GOES DAILY, BUT STATES STOOLS HAVE BEEN HARD AND DIFFICULT TO PASS. DENIES FEVER.
--- NOTE | 2019-10-29 11:41 | NUR ---
US AT BEDSIDE
--- NOTE | 2019-10-29 12:23 | NUR ---
DR. NOEL AT BEDSIDE WITH PT
[2019-10-29] MEDS ORDERED: HYDROcodone/APAP 5/325 MG 1 TAB TAB PO ONE (12:40)
[2019-10-29] MEDS ORDERED: ONDANSETRON 4 MG ODT PO ONE (12:40)
--- NOTE | 2019-10-29 12:55 | NUR ---
PT TO CT SCAN VIA W/C
--- NOTE | 2019-10-29 13:05 | NUR ---
PT RETURNED FROM CT
[2019-10-29 13:18] LABS: BASOPHILS % (AUTO) 0.3 % (0.0-2.0); EOSINOPHILS # (AUTO) 0.2 K/uL (0-0.4); EOSINOPHILS % (AUTO) 3.3 % (0.0-4.0); HEMATOCRIT 41.5 % (36-48); HEMOGLOBIN 13.9 g/dL (12.0-16.0); LYMPHOCYTES # (AUTO) 2.4 K/uL (2.5-16.5); LYMPHOCYTES % (AUTO) 32.6 % (20.5-51.1); MEAN CORPUSCULAR HEMOGLOBIN 30 pg (27-31); MEAN CORPUSCULAR HGB CONC 34 g/dL (33-37); MEAN CORPUSCULAR VOLUME 88.2 fL (80-94); MONOCYTES # (AUTO) 0.7 K/uL (0.8-1.0); MONOCYTES % (AUTO) 9.7 % (1.7-9.3); NEUTROPHILS # (AUTO) 3.9 K/uL (1.8-7.7); NEUTROPHILS % (AUTO) 54.1 % (42.2-75.2); PLATELET COUNT (AUTO) 304 K/uL (140-450); RED BLOOD CELL COUNT(AUTO) 4.71 MIL/uL (4.20-5.40); RED CELL DISTRIBUTION WIDTH 12.9 % (11.6-13.7); WHITE BLOOD COUNT (AUTO) 7.3 K/uL (4.8-10.8)
[2019-10-29 13:36] LABS: ANION GAP 11.1 (8-16); CARBON DIOXIDE 26.6 mmol/L (21-32); CREATININE 0.6 mg/dL (0.6-1.3); POTASSIUM 3.7 mmol/L (3.5-5.1)
[2019-10-29 13:42] LABS: ALBUMIN 4.2 g/dL (3.4-5.0); TOTAL BILIRUBIN 0.7 mg/dL (0.0-1.0)
[2019-10-29 14:02] LABS: APPEARANCE,URINE SL CLOUDY (CLEAR); BILIRUBIN,URINE NEGATIVE (NEGATIVE); BLOOD, URINE NEGATIVE (NEGATIVE); COLOR,URINE YELLOW (YELLOW); LEUKOCYTE ESTERASE ,URINE TRACE (NEGATIVE); NITRITE, URINE NEGATIVE (NEGATIVE); UGLUCOSE NEGATIVE (NEGATIVE)
[2019-10-29] MEDS ORDERED: NACL 0.9% 1,000 ML IV ONE (14:40)
[2019-10-29] MEDS ORDERED: ONDANSETRON 4 MG/2 ML VIAL IVP ONE (14:40)
[2019-10-29] MEDS ORDERED: MORPHINE SULFATE 4 MG/ML SYR IVP ONE (14:40)
--- NOTE | 2019-10-29 14:45 | NUR ---
PT REPORTS PAIN LEVEL 10/10, RIGHT PELVIC PAIN RADIATING TO THE BACK. PT TEARFUL. ERMD MADE AWARE.
[2019-10-29 15:07] LABS: RBC,URINE 0 /HPF (0-5); WBC,URINE 0-5 /HPF (0-5)
--- NOTE | 2019-10-29 15:50 | NUR ---
PT STATES PAIN RELIEF, PAIN LEVEL 0/10
[2019-10-29 16:09] VITALS: BP 126/86
--- NOTE | 2019-10-29 16:09 | NUR ---
Patient discharged with v/s stable. Written and verbal after care instructions given and explained. Pt encouraged to drink plenty of fluid and include fiber in her diet while taking norco for pain. Pt encouraged to follow up with PCP. Patient alert, oriented and verbalized understanding of instructions. Ambulatory with steady gait. All questions addressed prior to discharge. ID band removed. Patient advised to follow up with PMD. Rx of NORCO 5MG AND ZOFRAN 4MG WAS given. Patient educated on indication of medication including possible reaction and side effects. Opportunity to ask questions provided and answered.
== END 2019-10-29 16:09 | disposition home or self-care (01) ==
LOC: MED 10:43
DX: N83.201 Unspecified ovarian cyst, right side (principal); R11.2 Nausea with vomiting, unspecified; K21.9 Gastro-esophageal reflux disease without esophagitis; E07.9 Disorder of thyroid, unspecified; Z88.2 Allergy status to sulfonamides; Z88.8 Allergy status to other drugs, medicaments and biological substances
CPT/HCPCS: 36415; 74176; 76830; 80053; 81001; 81025; 84702; 85025; 96361; 96374; 96375; 99284; J2270; J2405; J7030; Q0092; Q0162

== ENCOUNTER 2020-06-29 00:56 | Emergency (ER) | payer MEDICAID, OTHER ==
[~2020-06-29] VITALS: Ht 167.6 cm; Wt 79.4 kg
[2020-06-29 01:37] VITALS: BP 125/71
[2020-06-29] MEDS ORDERED: diphenhydrAMINE 50 MG/ML VIAL IVP ONE (02:10)
[2020-06-29] MEDS ORDERED: NACL 0.9% 1,000 ML IV ONE (02:10)
[2020-06-29] MEDS ORDERED: MORPHINE SULFATE 2 MG/ML SYR IVP ONE ×2 (02:10→03:00)
[2020-06-29 02:25] LABS: BASOPHILS % (AUTO) 0.2 % (0.0-2.0); EOSINOPHILS # (AUTO) 0.2 K/uL (0-0.4); HEMATOCRIT 40.8 % (36-48); HEMOGLOBIN 13.6 g/dL (12.0-16.0); LYMPHOCYTES % (AUTO) 25.9 % (20.5-51.1); MEAN CORPUSCULAR HEMOGLOBIN 29 pg (27-31); MEAN CORPUSCULAR HGB CONC 33 g/dL (33-37); MEAN CORPUSCULAR VOLUME 86.9 fL (80-94); MONOCYTES # (AUTO) 0.6 K/uL (0.8-1.0); MONOCYTES % (AUTO) 8.5 % (1.7-9.3); NEUTROPHILS # (AUTO) 4.8 K/uL (1.8-7.7); NEUTROPHILS % (AUTO) 63.4 % (42.2-75.2); PLATELET COUNT (AUTO) 251 K/uL (140-450); WHITE BLOOD COUNT (AUTO) 7.6 K/uL (4.8-10.8)
[2020-06-29] MEDS ORDERED: ONDANSETRON 4 MG/2 ML VIAL IVP ONE (02:25)
[2020-06-29 02:38] LABS: ANION GAP 15.6 (8-16); CARBON DIOXIDE 24.3 mmol/L (21-32); CREATININE 0.8 mg/dL (0.6-1.3); POTASSIUM 3.9 mmol/L (3.5-5.1); TOTAL BILIRUBIN 0.6 mg/dL (0.0-1.0)
[2020-06-29] MEDS ORDERED: fentaNYL citrate 0.05 MG/ML VIAL IVP ONE (04:05)
== END 2020-06-29 04:47 | disposition home or self-care (01) ==
LOC: MED 00:56
DX: R10.2 Pelvic and perineal pain (principal); G47.00 Insomnia, unspecified; E07.9 Disorder of thyroid, unspecified; K21.9 Gastro-esophageal reflux disease without esophagitis; N71.9 Inflammatory disease of uterus, unspecified; Z88.6 Allergy status to analgesic agent; Z88.8 Allergy status to other drugs, medicaments and biological substances; Z88.2 Allergy status to sulfonamides
CPT/HCPCS: 36415; 76705; 76856; 80053; 81002; 81025; 83690; 85025; 96361; 96374; 96375; 96376; 99285; J1200; J2270; J2405; J3010; J7030; Q0092

== ENCOUNTER 2020-06-30 02:31 | Emergency (ER) | payer OTHER ==
[~2020-06-30] VITALS: Ht 167.6 cm; Wt 79.4 kg
[2020-06-30 02:39] VITALS: BP 124/91
[2020-06-30] MEDS ORDERED: LORazepam 1 MG TAB PO ONE (03:45)
[2020-06-30] MEDS ORDERED: LORazepam 2 MG/ML VIAL IM ONE (03:45)
[2020-06-30] MEDS ORDERED: HYDROcodone/APAP 5/325 MG 1 TAB TAB PO ONE (04:40)
[2020-06-30 05:17] VITALS: BP 124/91
== END 2020-06-30 05:17 | disposition home or self-care (01) ==
LOC: MED 02:31
DX: R10.2 Pelvic and perineal pain (principal); F41.9 Anxiety disorder, unspecified; E07.9 Disorder of thyroid, unspecified; J45.909 Unspecified asthma, uncomplicated; K21.9 Gastro-esophageal reflux disease without esophagitis; N71.9 Inflammatory disease of uterus, unspecified; Z88.8 Allergy status to other drugs, medicaments and biological substances; Z88.2 Allergy status to sulfonamides; Z88.6 Allergy status to analgesic agent; Z98.890 Other specified postprocedural states
CPT/HCPCS: 96372; 99283; J2060

== ENCOUNTER 2021-11-18 20:50 | Emergency (ER) | payer OTHER ==
[~2021-11-18] VITALS: Ht 167.6 cm; Wt 73.9 kg
[2021-11-18 21:20] VITALS: BP 132/96
--- NOTE | 2021-11-18 21:23 | NUR ---
TO LOBBY A/W BED AMBULATORY
[2021-11-18 22:03] LABS: BASOPHILS % (AUTO) 0.4 % (0.0-2.0); EOSINOPHILS # (AUTO) 0.3 K/uL (0-0.4); HEMATOCRIT 39.9 % (36-48); HEMOGLOBIN 13.7 g/dL (12.0-16.0); LYMPHOCYTES # (AUTO) 2.5 K/uL (2.5-16.5); LYMPHOCYTES % (AUTO) 37.2 % (20.5-51.1); MEAN CORPUSCULAR HEMOGLOBIN 30 pg (27-31); MEAN CORPUSCULAR HGB CONC 34 g/dL (33-37); MEAN CORPUSCULAR VOLUME 87.2 fL (80-94); MONOCYTES # (AUTO) 0.6 K/uL (0.8-1.0); MONOCYTES % (AUTO) 9.2 % (1.7-9.3); NEUTROPHILS # (AUTO) 3.2 K/uL (1.8-7.7); NEUTROPHILS % (AUTO) 49.2 % (42.2-75.2); PLATELET COUNT (AUTO) 396 K/uL (140-450); RED BLOOD CELL COUNT(AUTO) 4.58 MIL/uL (4.20-5.40); WHITE BLOOD COUNT (AUTO) 6.6 K/uL (4.8-10.8)
[2021-11-18] MEDS ORDERED: NACL 0.9% 1,000 ML IV ONE (22:10)
--- NOTE | 2021-11-18 22:12 | NUR ---
PT TAKEN TO BED 11.
--- NOTE | 2021-11-18 22:15 | NUR ---
36 YO F BIB SELF WITH C/C OF NAUSEA, DIARRHEA, BODYACHES, DIZZINESS, PELVIC PAIN, CANT EAT , FATIQUE, CANT SLEEP, FEELING COLD, SOB, CHEST PAIN, DIFF OF BREATHING FOR 2 WEEKS AGO, ON ANXIETY ATTACK. SEEN IN [facility] LAST WEDNESDAY WITH SAME COMPLAINTS
--- NOTE | 2021-11-18 22:36 | NUR ---
PT UNABLE TO GIVE URINE, IS DRINKING WATER TO VOID. PT PLACED IN GOWN AND GIVEN BLANKET.
[2021-11-18 22:49] LABS: ALBUMIN 4.3 g/dL (3.4-5.0); ANION GAP 11.9 (8-16); CARBON DIOXIDE 28.6 mmol/L (21-32); CREATININE 0.7 mg/dL (0.6-1.3); POTASSIUM 3.5 mmol/L (3.5-5.1); TOTAL BILIRUBIN 0.2 mg/dL (0.0-1.0)
[2021-11-18] MEDS ORDERED: ONDANSETRON 4 MG/2 ML VIAL IVP ONE (23:05)
[2021-11-18] MEDS ORDERED: MORPHINE SULFATE 4 MG/ML SYR IVP ONE (23:05)
--- NOTE | 2021-11-19 | NUR ---
PT AWAKE AND ALERT. VSS. PT IN STABLE CONDITION. BED LOCKED IN LOWEST POSITION, SIDE RAILS X2 FOR SAFETY.
[2021-11-19] MEDS ORDERED: CIPR500T4 PO (00:32)
[2021-11-19] MEDS ORDERED: ACET-8386 PO (00:32)
[2021-11-19] MEDS ORDERED: PROM12.512 PO (00:32)
[2021-11-19] MEDS ORDERED: MORPHINE SULFATE 4 MG/ML SYR IVP ONE (01:30)
[2021-11-19] MEDS ORDERED: ONDANSETRON 4 MG/2 ML VIAL IVP ONE (01:30)
[2021-11-19 02:35] VITALS: BP 115/78
--- NOTE | 2021-11-19 02:35 | NUR ---
Patient discharged with v/s stable. Written and verbal after care instructions given and explained. Patient alert, oriented and verbalized understanding of instructions. Ambulatory with steady gait. All questions addressed prior to discharge. ID band removed. Patient advised to follow up with PMD. Rx of NORCO, CIPROFLOXACIN, AND PROMETHAZINE given. Patient educated on indication of medication including possible reaction and side effects. Opportunity to ask questions provided and answered.
== END 2021-11-19 02:35 | disposition home or self-care (01) ==
LOC: MED 20:50
DX: R11.2 Nausea with vomiting, unspecified (principal); R10.9 Unspecified abdominal pain; R19.7 Diarrhea, unspecified; J45.909 Unspecified asthma, uncomplicated; K21.9 Gastro-esophageal reflux disease without esophagitis; E07.9 Disorder of thyroid, unspecified; Z88.2 Allergy status to sulfonamides; Z88.6 Allergy status to analgesic agent; Z88.8 Allergy status to other drugs, medicaments and biological substances
CPT/HCPCS: 36415; 80053; 81002; 81025; 83690; 85025; 96361; 96374; 96375; 96376; 99284; J2270; J2405; J7030

== ENCOUNTER 2021-11-21 02:52 | Emergency (ER) | payer OTHER ==
[~2021-11-21] VITALS: Ht 167.6 cm; Wt 73.9 kg
[~2021-11-21 02:52] MED LIST: ACET-8386 PO; CIPR500T4 PO; PROM12.512 PO
[2021-11-21 02:57] VITALS: BP 137/90
--- NOTE | 2021-11-21 03:00 | NUR ---
TO LOBBY A/W BED AMBULATORY
--- NOTE | 2021-11-21 03:47 | NUR ---
PT WAS TAKEN TO BED 01 VIA WHEEL CHAIR
[2021-11-21] MEDS ORDERED: NACL 0.9% 1,000 ML IV ONE ×2 (03:55→06:10)
[2021-11-21] MEDS ORDERED: MORPHINE SULFATE 4 MG/ML SYR IVP ONE ×2 (03:55→07:25)
[2021-11-21] MEDS ORDERED: ONDANSETRON 4 MG/2 ML VIAL IVP ONE ×2 (03:55→06:10)
--- NOTE | 2021-11-21 04:25 | NUR ---
patient c/o sudden chest tightness, difficulty breathing, diffiuclty catching a breath, "i feel like my heart is going to jump out of my chest." patient has dilated pupils, with a dazed off look in both eyes. ERMD made aware
[2021-11-21 04:57] LABS: BASOPHILS % (AUTO) 0.4 % (0.0-2.0); EOSINOPHILS # (AUTO) 0.3 K/uL (0-0.4); EOSINOPHILS % (AUTO) 3.2 % (0.0-4.0); HEMATOCRIT 37.4 % (36-48); HEMOGLOBIN 12.6 g/dL (12.0-16.0); LYMPHOCYTES # (AUTO) 2.8 K/uL (2.5-16.5); LYMPHOCYTES % (AUTO) 26.4 % (20.5-51.1); MEAN CORPUSCULAR HEMOGLOBIN 30 pg (27-31); MEAN CORPUSCULAR HGB CONC 34 g/dL (33-37); MEAN CORPUSCULAR VOLUME 87.6 fL (80-94); MONOCYTES # (AUTO) 0.6 K/uL (0.8-1.0); MONOCYTES % (AUTO) 6.1 % (1.7-9.3); NEUTROPHILS # (AUTO) 6.8 K/uL (1.8-7.7); NEUTROPHILS % (AUTO) 63.9 % (42.2-75.2); PLATELET COUNT (AUTO) 355 K/uL (140-450); RED BLOOD CELL COUNT(AUTO) 4.27 MIL/uL (4.20-5.40); WHITE BLOOD COUNT (AUTO) 10.6 K/uL (4.8-10.8)
[2021-11-21 05:14] LABS: ALBUMIN 4.1 g/dL (3.4-5.0); CARBON DIOXIDE 27.9 mmol/L (21-32); CREATININE 0.7 mg/dL (0.6-1.3); TOTAL BILIRUBIN 0.2 mg/dL (0.0-1.0)
--- NOTE | 2021-11-21 05:18 | NUR ---
patient ambulated to the bathroom with a steady gait.
[2021-11-21 05:19] LABS: POTASSIUM 2.9 mmol/L (3.5-5.1)
--- NOTE | 2021-11-21 05:24 | NUR ---
assisted patient via w/c as patient became in pain and unable to ambulate-- ermd made aware
[2021-11-21] MEDS ORDERED: POTASSIUM CHLORIDE 10 MEQ TABER PO ONE (05:30)
--- NOTE | 2021-11-21 05:33 | NUR ---
patient to CT via wheelchair
[2021-11-21] MEDS ORDERED: CITA10TA11 PO (05:45)
[2021-11-21] MEDS ORDERED: CLON0.5T PO (05:45)
[2021-11-21] MEDS ORDERED: CEPH500C16 PO (05:45)
[2021-11-21] MEDS ORDERED: IMI25 PO (05:45)
[2021-11-21] MEDS ORDERED: SULF-954 PO (05:45)
[2021-11-21 05:47] LABS: APPEARANCE,URINE CLEAR (CLEAR); BILIRUBIN,URINE NEGATIVE (NEGATIVE); BLOOD, URINE NEGATIVE (NEGATIVE); COLOR,URINE YELLOW (YELLOW); LEUKOCYTE ESTERASE ,URINE NEGATIVE (NEGATIVE); NITRITE, URINE NEGATIVE (NEGATIVE); PH,URINE 6.5 (5.0-9.0); UGLUCOSE NEGATIVE (NEGATIVE)
--- NOTE | 2021-11-21 07:02 | NUR ---
Patient appears to be resting comfortably in bed- low fowlers and with eyes closed. Vital Signs within normal limits. Respirations even and unlabored. Safety measures are in place, patient placed on the monitor and will continue to monitor patient
--- NOTE | 2021-11-21 07:10 | NUR ---
Pt report given to Deana CAPELLAN. Transfer of care at this time.
--- NOTE | 2021-11-21 07:20 | NUR ---
RECEIVED PT IN [facility] AOX4. C/O RLQ PAIN RADIATING TO RIGHT FLANK X2 WEEKS. MEDICATED WITH MORPHINE PER ORDER. TOLERATED WELL. PENDING DISPO. NAD. SAFETY MAINTAINED.
[2021-11-21] MEDS ORDERED: ONDA-188 SL (07:24)
[2021-11-21 07:34] VITALS: BP 118/60
== END 2021-11-21 08:31 | disposition home or self-care (01) ==
LOC: MED 02:52
DX: R10.9 Unspecified abdominal pain (principal); R11.2 Nausea with vomiting, unspecified; R19.7 Diarrhea, unspecified; E87.6 Hypokalemia; F32.9 Major depressive disorder, single episode, unspecified; Z90.49 Acquired absence of other specified parts of digestive tract; Z90.710 Acquired absence of both cervix and uterus
CPT/HCPCS: 36415; 74177; 80053; 81003; 83690; 83735; 84703; 85025; 87086; 96361; 96374; 96375; 96376; 99285; J2270; J2405; Q9967; J7030

== ENCOUNTER 2021-11-24 01:02 | Emergency (ER) | payer OTHER ==
[~2021-11-24] VITALS: Ht 167.6 cm; Wt 73.9 kg
[~2021-11-24 01:02] MED LIST changes: +ONDA-188 SL
[2021-11-24 01:29] VITALS: BP 115/80
--- NOTE | 2021-11-24 02:44 | NUR ---
PT WHEELED TO BED 01.
--- NOTE | 2021-11-24 03:04 | NUR ---
Dr. Reece examining patient.
[2021-11-24] MEDS ORDERED: ONDANSETRON 4 MG/2 ML VIAL IVP ONE (03:15)
[2021-11-24] MEDS ORDERED: MORPHINE SULFATE 4 MG/ML SYR IVP ONE (03:15)
[2021-11-24 03:29] LABS: BASOPHILS # (AUTO) 0.1 K/uL (0.00-0.22); BASOPHILS % (AUTO) 0.8 % (0.0-2.0); EOSINOPHILS # (AUTO) 0.3 K/uL (0-0.4); EOSINOPHILS % (AUTO) 4.2 % (0.0-4.0); HEMATOCRIT 37.1 % (36-48); HEMOGLOBIN 12.5 g/dL (12.0-16.0); LYMPHOCYTES # (AUTO) 1.8 K/uL (2.5-16.5); LYMPHOCYTES % (AUTO) 29.6 % (20.5-51.1); MEAN CORPUSCULAR HEMOGLOBIN 30 pg (27-31); MEAN CORPUSCULAR HGB CONC 34 g/dL (33-37); MEAN CORPUSCULAR VOLUME 88.1 fL (80-94); MONOCYTES # (AUTO) 0.5 K/uL (0.8-1.0); MONOCYTES % (AUTO) 7.7 % (1.7-9.3); NEUTROPHILS # (AUTO) 3.5 K/uL (1.8-7.7); NEUTROPHILS % (AUTO) 57.7 % (42.2-75.2); PLATELET COUNT (AUTO) 319 K/uL (140-450); RED BLOOD CELL COUNT(AUTO) 4.22 MIL/uL (4.20-5.40); RED CELL DISTRIBUTION WIDTH 13.2 % (11.6-13.7); WHITE BLOOD COUNT (AUTO) 6.1 K/uL (4.8-10.8)
[2021-11-24 03:29] LABS: APPEARANCE,URINE CLEAR (CLEAR); BILIRUBIN,URINE NEGATIVE (NEGATIVE); BLOOD, URINE NEGATIVE (NEGATIVE); COLOR,URINE YELLOW (YELLOW); LEUKOCYTE ESTERASE ,URINE NEGATIVE (NEGATIVE); NITRITE, URINE NEGATIVE (NEGATIVE); UGLUCOSE NEGATIVE (NEGATIVE)
[2021-11-24 03:44] LABS: ALBUMIN 3.8 g/dL (3.4-5.0); ANION GAP 10.5 (8-16); CARBON DIOXIDE 27.6 mmol/L (21-32); CREATININE 0.6 mg/dL (0.6-1.3); POTASSIUM 4.1 mmol/L (3.5-5.1); TOTAL BILIRUBIN 0.4 mg/dL (0.0-1.0)
--- NOTE | 2021-11-24 03:59 | NUR ---
PT C/O OF MULTIPLE PROBLEMS. PELVIC PAIN, CHILLS, N/V/D, BODY PAIN
[2021-11-24 05:02] VITALS: BP 102/66
--- NOTE | 2021-11-24 05:02 | NUR ---
Patient discharged with v/s stable. Written and verbal after care instructions given and explained. Patient verbalized understanding. Ambulatory with steady gait. All questions addressed prior to discharge. Advised to follow up with PMD.
== END 2021-11-24 05:02 | disposition home or self-care (01) ==
LOC: MED 01:02
DX: R10.9 Unspecified abdominal pain (principal); R30.0 Dysuria; M79.10 Myalgia, unspecified site; J45.909 Unspecified asthma, uncomplicated; K21.9 Gastro-esophageal reflux disease without esophagitis; E07.9 Disorder of thyroid, unspecified; E66.9 Obesity, unspecified; Z79.899 Other long term (current) drug therapy; Z88.2 Allergy status to sulfonamides; Z88.6 Allergy status to analgesic agent; Z88.8 Allergy status to other drugs, medicaments and biological substances; Z68.26 Body mass index [BMI] 26.0-26.9, adult
CPT/HCPCS: 36415; 80053; 81003; 81025; 83605; 83690; 85025; 96374; 96375; 99284; J2270; J2405

== ENCOUNTER 2022-02-19 14:04 | Emergency (ER) | payer OTHER ==
[~2022-02-19] VITALS: Ht 167.6 cm; Wt 81.6 kg
[2022-02-19 14:09] VITALS: BP 125/82
--- NOTE | 2022-02-19 14:20 | NUR ---
37 Y/O F AMBULATED TO BED 1 WITH STEADY GAIT, C/O FEVER, NVD, LOWER BACK PAIN, AND BODY ACHES X 2 DAYS. NO FEVER IN TRIAGE 98.7 ORAL PMH: ANXIETY, BIPOLAR, DESPRESSION, ENDOMETRIOSIS ALLERGIES: SULFA MEDS, IBUPROFEN, NSAIDS, PROMETHIZINE
[2022-02-19] MEDS ORDERED: NACL 0.9% 1,000 ML IV ONE (14:35)
--- NOTE | 2022-02-19 14:38 | NUR ---
DR HAGAN AT BEDSIDE FOR MSE
--- NOTE | 2022-02-19 14:48 | NUR ---
LAB AT BEDSIDE FOR BLOOD DRAW
[2022-02-19 15:00] LABS: BILIRUBIN,URINE NEGATIVE (NEGATIVE); BLOOD, URINE NEGATIVE (NEGATIVE); COLOR,URINE YELLOW (YELLOW); LEUKOCYTE ESTERASE ,URINE NEGATIVE (NEGATIVE); NITRITE, URINE NEGATIVE (NEGATIVE); UGLUCOSE NEGATIVE (NEGATIVE)
[2022-02-19 15:13] LABS: BASOPHILS % (AUTO) 0.4 % (0.0-2.0); EOSINOPHILS # (AUTO) 0.1 K/uL (0-0.4); EOSINOPHILS % (AUTO) 1.6 % (0.0-4.0); HEMATOCRIT 36.4 % (36-48); HEMOGLOBIN 12.1 g/dL (12.0-16.0); LYMPHOCYTES # (AUTO) 1.3 K/uL (2.5-16.5); LYMPHOCYTES % (AUTO) 14.7 % (20.5-51.1); MEAN CORPUSCULAR HEMOGLOBIN 29 pg (27-31); MEAN CORPUSCULAR HGB CONC 33 g/dL (33-37); MEAN CORPUSCULAR VOLUME 87.7 fL (80-94); MONOCYTES # (AUTO) 0.6 K/uL (0.8-1.0); MONOCYTES % (AUTO) 7.3 % (1.7-9.3); NEUTROPHILS # (AUTO) 6.6 K/uL (1.8-7.7); PLATELET COUNT (AUTO) 315 K/uL (140-450); RED BLOOD CELL COUNT(AUTO) 4.15 MIL/uL (4.20-5.40); RED CELL DISTRIBUTION WIDTH 14.1 % (11.6-13.7); WHITE BLOOD COUNT (AUTO) 8.6 K/uL (4.8-10.8)
[2022-02-19 15:14] LABS: APPEARANCE,URINE CLEAR (CLEAR)
[2022-02-19 15:18] LABS: ALBUMIN 3.4 g/dL (3.4-5.0); ANION GAP 12.9 (8-16); CARBON DIOXIDE 26.8 mmol/L (21-32); CREATININE 0.6 mg/dL (0.6-1.3); POTASSIUM 3.7 mmol/L (3.5-5.1)
[2022-02-19] MEDS ORDERED: ONDANSETRON 4 MG/2 ML VIAL IVP ONE (15:20)
[2022-02-19] MEDS ORDERED: MORPHINE SULFATE 4 MG/ML SYR IVP ONE (15:20)
[2022-02-19 15:33] LABS: TOTAL BILIRUBIN 0.4 mg/dL (0.0-1.0)
--- NOTE | 2022-02-19 15:58 | NUR ---
NIGHT SHIFT SUPERVISOR TOOK PT FOR CT ABD/PELVIS VIA [facility]
--- NOTE | 2022-02-19 16:16 | NUR ---
PT BACK FROM CT, PT PLACED BACK ON VS MONITOR
--- NOTE | 2022-02-19 16:27 | NUR ---
PT AMBULATED TO RESTROOM WITH STEADY GAIT
[2022-02-19] MEDS ORDERED: ACETAMINOPHEN 325 MG TAB PO ONE (17:20)
[2022-02-19] MEDS ORDERED: BEN10 PO (18:06)
[2022-02-19] MEDS ORDERED: LOPE-231 PO (18:06)
[2022-02-19] MEDS ORDERED: FAMO-90 PO (18:06)
[2022-02-19 18:42] VITALS: BP 101/63
--- NOTE | 2022-02-19 18:42 | NUR ---
Patient discharged with v/s stable. Written and verbal after care instructions given and explained. Patient alert, oriented and verbalized understanding of instructions. Ambulatory with steady gait. All questions addressed prior to discharge. ID band removed. Patient advised to follow up with PMD. Rx of BENTYL, PEPCID, LOPERAMIDE given. Patient educated on indication of medication including possible reaction and side effects. Opportunity to ask questions provided and answered.
== END 2022-02-19 18:42 | disposition home or self-care (01) ==
LOC: MED 14:04
DX: A08.4 Viral intestinal infection, unspecified (principal); Z20.822 Contact with and (suspected) exposure to COVID-19; R11.2 Nausea with vomiting, unspecified; R19.7 Diarrhea, unspecified; K21.9 Gastro-esophageal reflux disease without esophagitis; J45.909 Unspecified asthma, uncomplicated; E07.9 Disorder of thyroid, unspecified; Z79.899 Other long term (current) drug therapy; Z98.890 Other specified postprocedural states; Z90.710 Acquired absence of both cervix and uterus; Z88.2 Allergy status to sulfonamides; Z88.6 Allergy status to analgesic agent; Z88.1 Allergy status to other antibiotic agents
CPT/HCPCS: 36415; 74176; 80053; 81003; 82150; 83690; 84703; 85025; 87426; 87804; 96361; 96374; 96375; 99285; J2270; J2405; J7030

== ENCOUNTER 2022-02-20 16:20 | Emergency (ER) | payer OTHER ==
[~2022-02-20] VITALS: Ht 167.6 cm; Wt 83.0 kg
[~2022-02-20 16:20] MED LIST changes: +BEN10 PO; +FAMO-90 PO; +LOPE-231 PO
[2022-02-20 16:22] VITALS: BP 129/96
[2022-02-20] MEDS ORDERED: MORPHINE SULFATE 4 MG/ML SYR IM ONE (16:50)
[2022-02-20] MEDS ORDERED: diphenhydrAMINE 50 MG/ML VIAL IM ONE (16:50)
[2022-02-20 17:09] LABS: APPEARANCE,URINE CLEAR (CLEAR); BILIRUBIN,URINE NEGATIVE (NEGATIVE); BLOOD, URINE NEGATIVE (NEGATIVE); COLOR,URINE YELLOW (YELLOW); LEUKOCYTE ESTERASE ,URINE NEGATIVE (NEGATIVE); NITRITE, URINE NEGATIVE (NEGATIVE); PH,URINE 7.5 (5.0-9.0); UGLUCOSE NEGATIVE (NEGATIVE)
[2022-02-20 17:16] LABS: BASOPHILS % (AUTO) 0.5 % (0.0-2.0); EOSINOPHILS # (AUTO) 0.1 K/uL (0-0.4); EOSINOPHILS % (AUTO) 1.6 % (0.0-4.0); HEMATOCRIT 34.3 % (36-48); HEMOGLOBIN 11.5 g/dL (12.0-16.0); MEAN CORPUSCULAR HEMOGLOBIN 29 pg (27-31); MEAN CORPUSCULAR HGB CONC 34 g/dL (33-37); MEAN CORPUSCULAR VOLUME 87.5 fL (80-94); MONOCYTES # (AUTO) 0.6 K/uL (0.8-1.0); MONOCYTES % (AUTO) 8.5 % (1.7-9.3); NEUTROPHILS # (AUTO) 4.8 K/uL (1.8-7.7); NEUTROPHILS % (AUTO) 63.4 % (42.2-75.2); PLATELET COUNT (AUTO) 283 K/uL (140-450); RED BLOOD CELL COUNT(AUTO) 3.93 MIL/uL (4.20-5.40); RED CELL DISTRIBUTION WIDTH 13.9 % (11.6-13.7); WHITE BLOOD COUNT (AUTO) 7.6 K/uL (4.8-10.8)
--- NOTE | 2022-02-20 17:35 | NUR ---
37/F BIB FAMILY, AA&OX4, AMBULATORY W/ STEADY GAIT; PRESENTS TO ED WITH C/O R SIDED ABDOMINAL PAIN THAT RADIATES TO POSTERIOR, 09/07. PATIENT WAS IN ED YESTERDAY FOR SAME COMPLAINT. +VOMITING, DIARRHEA, DENIES CP, SOB, DYSURIA OR HEMATURIA. PATIENT CURRENTLY SEE A PAIN SPECIALIST AND PCP PERIODICALLY. PMH: PARTIAL HYSTERECTOMY, ENDOMETRIOSIS, CHRONIC PAIN, CHOLECYSTECTOMY, ANXIETY, DEPRESSION MEDS: ABILIFY, ATIVAN ALLERGIES: SULFA, DIAZEPAM, IBUPROFEN, TORADOL, PROMETHAZINE
[2022-02-20 17:47] LABS: ALBUMIN 3.3 g/dL (3.4-5.0); ANION GAP 12.9 (8-16); CARBON DIOXIDE 25.8 mmol/L (21-32); CREATININE 0.6 mg/dL (0.6-1.3); POTASSIUM 3.7 mmol/L (3.5-5.1); TOTAL BILIRUBIN 0.6 mg/dL (0.0-1.0)
--- NOTE | 2022-02-20 17:48 | NUR ---
US AT PATIENT BEDSIDE.
[2022-02-20 18:51] VITALS: BP 129/96
--- NOTE | 2022-02-20 18:51 | NUR ---
Patient discharged with v/s stable. Written and verbal after care instructions ABOUT CHRONIC PAIN, OVARIAN CYST AND EXERCISING TO STAY HEALTHY given and explained. Patient verbalized understanding. Ambulatory with steady gait. All questions addressed prior to discharge. Advised to follow up with PMD.
--- NOTE | 2022-02-20 18:52 | NUR ---
The patient's care was reviewed and supervised by Sharla Mathew RN.
== END 2022-02-20 18:51 | disposition home or self-care (01) ==
LOC: MED 16:20
DX: N83.201 Unspecified ovarian cyst, right side (principal); G89.29 Other chronic pain; R10.31 Right lower quadrant pain; J45.909 Unspecified asthma, uncomplicated; K21.9 Gastro-esophageal reflux disease without esophagitis; F41.9 Anxiety disorder, unspecified; Z90.710 Acquired absence of both cervix and uterus; Z79.899 Other long term (current) drug therapy; Z88.2 Allergy status to sulfonamides; Z88.1 Allergy status to other antibiotic agents; Z88.8 Allergy status to other drugs, medicaments and biological substances; Z88.6 Allergy status to analgesic agent
CPT/HCPCS: 36415; 76856; 80053; 81003; 83690; 85025; 93976; 96372; 99285; J1200; J2270; Q0092

== ENCOUNTER 2022-02-24 17:17 | Emergency (ER) | payer OTHER ==
[~2022-02-24] VITALS: Ht 167.6 cm; Wt 81.6 kg
[2022-02-24 17:23] VITALS: BP 108/92
--- NOTE | 2022-02-24 17:28 | NUR ---
AMBULATORY TO BED 5.
--- NOTE | 2022-02-24 17:30 | NUR ---
37 Y/O F C/O PELVIC PAIN 08/08 WITH N/Vx2/Dx 10 THAT IS WATERY STRINGY. PT IS ALSO HAS C/O PAIN ON LEFT BREAST AND WEAKNESS. MEDHX: ENDOMETRIOSIS, PARTIAL HYSTERECTOMY, ANXIETY, GALLBLADDER REMOVAL SEE ALLERGY LIST
[2022-02-24] MEDS ORDERED: NACL 0.9% 1,000 ML IV ONE (18:25)
[2022-02-24] MEDS ORDERED: ONDANSETRON 4 MG/2 ML VIAL IVP ONE (18:25)
[2022-02-24] MEDS ORDERED: MORPHINE SULFATE 4 MG/ML SYR IVP ONE ×2 (18:25→20:45)
--- NOTE | 2022-02-24 18:48 | NUR ---
WALKED BLOOD AND URINE SAMPLES TO LAB
[2022-02-24 19:03] LABS: BASOPHILS # (AUTO) 0.1 K/uL (0.00-0.22); BASOPHILS % (AUTO) 0.5 % (0.0-2.0); EOSINOPHILS # (AUTO) 0.2 K/uL (0-0.4); EOSINOPHILS % (AUTO) 1.4 % (0.0-4.0); HEMOGLOBIN 14.1 g/dL (12.0-16.0); LYMPHOCYTES # (AUTO) 1.7 K/uL (2.5-16.5); LYMPHOCYTES % (AUTO) 15.6 % (20.5-51.1); MEAN CORPUSCULAR HEMOGLOBIN 29 pg (27-31); MEAN CORPUSCULAR HGB CONC 34 g/dL (33-37); MEAN CORPUSCULAR VOLUME 87.5 fL (80-94); MONOCYTES # (AUTO) 0.7 K/uL (0.8-1.0); MONOCYTES % (AUTO) 6.7 % (1.7-9.3); NEUTROPHILS % (AUTO) 75.8 % (42.2-75.2); PLATELET COUNT (AUTO) 409 K/uL (140-450); RED BLOOD CELL COUNT(AUTO) 4.81 MIL/uL (4.20-5.40); RED CELL DISTRIBUTION WIDTH 13.9 % (11.6-13.7); WHITE BLOOD COUNT (AUTO) 10.6 K/uL (4.8-10.8)
--- NOTE | 2022-02-24 19:13 | NUR ---
Pt report given to TERRIE CAPELLAN. Transfer of care at this time.
[2022-02-24 19:20] LABS: APPEARANCE,URINE SL CLOUDY (CLEAR); BILIRUBIN,URINE NEGATIVE (NEGATIVE); BLOOD, URINE NEGATIVE (NEGATIVE); COLOR,URINE YELLOW (YELLOW); LEUKOCYTE ESTERASE ,URINE TRACE (NEGATIVE); NITRITE, URINE NEGATIVE (NEGATIVE); UGLUCOSE NEGATIVE (NEGATIVE)
[2022-02-24 19:36] LABS: ALBUMIN 4.2 g/dL (3.4-5.0); ANION GAP 14.1 (8-16); CARBON DIOXIDE 26.7 mmol/L (21-32); CREATININE 0.7 mg/dL (0.6-1.3); POTASSIUM 3.8 mmol/L (3.5-5.1); TOTAL BILIRUBIN 0.8 mg/dL (0.0-1.0)
[2022-02-24 19:53] LABS: RBC,URINE 0-5 /HPF (0-5); WBC,URINE 0-5 /HPF (0-5)
[2022-02-24 19:54] LABS: CALCIUM OXALATE CRYSTALS,UR None Seen /HPF (None Seen); COARSE GRANULAR CASTS,URINE None Seen /LPF (None Seen); FINE GRANULAR CASTS,URINE None Seen /LPF (None Seen); HYALINE CASTS, URINE None Seen /LPF (None Seen); OTHER CASTS, URINE None Seen /LPF (None Seen); OTHER CRYSTALS,URINE None Seen /HPF (None Seen); RED BLOOD CELL CASTS,URINE None Seen /LPF (None Seen); TRICHOMONAS,URINE None Seen /HPF (None Seen); TRIPLE PHOSPHATE CRYSTAL,UR None Seen /HPF (None Seen); URIC ACID CRYSTALS,URINE None Seen /HPF (None Seen); URINE AMORPHOUS URATE None Seen /HPF (None Seen); WAXY CASTS,URINE None Seen /LPF (None Seen); YEAST,URINE None Seen /HPF (None Seen)
--- NOTE | 2022-02-24 19:55 | NUR ---
pt went to CT
--- NOTE | 2022-02-24 20:09 | NUR ---
PT RETURN FROM CT
--- NOTE | 2022-02-24 20:09 | NUR ---
pt returned to CT
[2022-02-24] MEDS ORDERED: KETOROLAC 15 MG/ML VIAL IVP ONE ×2 (20:10→20:40)
[2022-02-24] MEDS ORDERED: diphenhydrAMINE 50 MG/ML VIAL IVP ONE ×2 (20:10→20:40)
--- NOTE | 2022-02-24 20:16 | NUR ---
Dr. Gonzalez examining patient.
[2022-02-24] MEDS ORDERED: KETOROLAC 15 MG/ML VIAL ONE (20:29)
[2022-02-24] MEDS ORDERED: diphenhydrAMINE 50 MG/ML VIAL ONE (20:30)
--- NOTE | 2022-02-24 21:11 | NUR ---
PT RECEIVED toradol and benadryl. pt tolerated medication well. no signs of allergic reaction or reports of any adverse reactions.
--- NOTE | 2022-02-24 21:11 | NUR ---
PT COMPLETED ULTRASOUND AT BESIDE.
[2022-02-24 22:36] VITALS: BP 114/76
--- NOTE | 2022-02-24 22:37 | NUR ---
Patient discharged with v/s stable. Written and verbal after care instructions given and explained. Patient verbalized understanding. Ambulatory with steady gait. All questions addressed prior to discharge. Advised to follow up with PMD. COPY OF RADIOLOGY AND LAB RESULTS GIVEN TO PT.
== END 2022-02-24 22:37 | disposition home or self-care (01) ==
LOC: MED 17:17
DX: N80.9 Endometriosis, unspecified (principal); N83.201 Unspecified ovarian cyst, right side; R00.0 Tachycardia, unspecified; R19.7 Diarrhea, unspecified; J45.909 Unspecified asthma, uncomplicated; K21.9 Gastro-esophageal reflux disease without esophagitis; Z90.49 Acquired absence of other specified parts of digestive tract; Z98.890 Other specified postprocedural states; Z79.899 Other long term (current) drug therapy; Z79.2 Long term (current) use of antibiotics; Z79.891 Long term (current) use of opiate analgesic; Z88.6 Allergy status to analgesic agent; Z88.2 Allergy status to sulfonamides; Z88.8 Allergy status to other drugs, medicaments and biological substances
CPT/HCPCS: 36415; 74177; 76856; 80053; 81001; 81025; 85025; 93976; 96361; 96374; 96375; 96376; 99285; J1200; J1885; J2270; J2405; J7030; Q0092; Q9967

== ENCOUNTER 2022-02-27 01:59 | Emergency (ER) | payer OTHER ==
[~2022-02-27] VITALS: Ht 167.6 cm; Wt 83.0 kg
[2022-02-27 02:00] VITALS: BP 112/82
--- NOTE | 2022-02-27 02:06 | NUR ---
TO BED 12 FOLLOWING TRIAGE
[2022-02-27 02:23] LABS: APPEARANCE,URINE CLEAR (CLEAR); BILIRUBIN,URINE NEGATIVE (NEGATIVE); BLOOD, URINE NEGATIVE (NEGATIVE); COLOR,URINE YELLOW (YELLOW); LEUKOCYTE ESTERASE ,URINE 1+ (NEGATIVE); NITRITE, URINE NEGATIVE (NEGATIVE); UGLUCOSE NEGATIVE (NEGATIVE)
--- NOTE | 2022-02-27 02:25 | NUR ---
37 YO F BIB SELF WITH C/C OF 10/10 RT LOWER PELVIC PAIN THAT RAD TO BACK AND DOWN RT LEG. PT STATES SHE HAS 3 OVARIAN CYSTS. PT REPORTS 10/10 RECTAL PAIN D/T COMPLICATION AFTER HAVING SURGERY FOR ENDOMETRIOSIS. +N/V/D. DENIES BLOOD IN STOOL AND EMESIS. HX:ENDOMETROSIS ALLERGY:SULFA, DIAZEPAM, NAPROSYN, IBUPROFEN, AND TORADOL
--- NOTE | 2022-02-27 02:35 | NUR ---
ERMD AT BEDSIDE EXAMINING PT.
[2022-02-27 02:47] LABS: RBC,URINE 0-5 /HPF (0-5)
--- NOTE | 2022-02-27 02:49 | NUR ---
LAB AT BEDSIDE.
[2022-02-27] MEDS ORDERED: NACL 0.9% 1,000 ML IV ONE (02:55)
[2022-02-27] MEDS ORDERED: MORPHINE SULFATE 4 MG/ML SYR IVP ONE (02:55)
[2022-02-27] MEDS ORDERED: ONDANSETRON 4 MG/2 ML VIAL IVP ONE (02:55)
[2022-02-27 03:04] LABS: BASOPHILS # (AUTO) 0.2 K/uL (0.00-0.22); BASOPHILS % (AUTO) 2.1 % (0.0-2.0); EOSINOPHILS # (AUTO) 0.4 K/uL (0-0.4); EOSINOPHILS % (AUTO) 4.1 % (0.0-4.0); HEMATOCRIT 33.9 % (36-48); HEMOGLOBIN 11.4 g/dL (12.0-16.0); LYMPHOCYTES # (AUTO) 1.6 K/uL (2.5-16.5); LYMPHOCYTES % (AUTO) 15.9 % (20.5-51.1); MEAN CORPUSCULAR HEMOGLOBIN 29 pg (27-31); MEAN CORPUSCULAR HGB CONC 34 g/dL (33-37); MEAN CORPUSCULAR VOLUME 86.7 fL (80-94); MONOCYTES # (AUTO) 0.7 K/uL (0.8-1.0); NEUTROPHILS # (AUTO) 6.9 K/uL (1.8-7.7); NEUTROPHILS % (AUTO) 70.9 % (42.2-75.2); PLATELET COUNT (AUTO) 348 K/uL (140-450); RED BLOOD CELL COUNT(AUTO) 3.91 MIL/uL (4.20-5.40); RED CELL DISTRIBUTION WIDTH 13.8 % (11.6-13.7); WHITE BLOOD COUNT (AUTO) 9.8 K/uL (4.8-10.8)
--- NOTE | 2022-02-27 03:06 | NUR ---
US AT BEDSIDE.
--- NOTE | 2022-02-27 03:15 | NUR ---
PT RESTING IN BED. ALL NEEDS MET AT THIS TIME. JUD SIDE RAILS UP FOR SAFETY. BED LOCKED AND IN LOWEST POSITION
--- NOTE | 2022-02-27 03:20 | NUR ---
IV ESTABLISHED 20G LEFT AC,
[2022-02-27 03:21] LABS: ALBUMIN 3.4 g/dL (3.4-5.0); ANION GAP 12.3 (8-16); CARBON DIOXIDE 26.3 mmol/L (21-32); CREATININE 0.7 mg/dL (0.6-1.3); POTASSIUM 3.6 mmol/L (3.5-5.1); TOTAL BILIRUBIN 0.4 mg/dL (0.0-1.0)
--- NOTE | 2022-02-27 04:33 | NUR ---
PATIENT AMBULATED TO THE RESTROOM
--- NOTE | 2022-02-27 04:35 | NUR ---
PATIENT AMBULATED BACK TO BED 12
[2022-02-27] MEDS ORDERED: cefTRIAXone 1,000 MG VIAL ONE (05:32)
--- NOTE | 2022-02-27 05:43 | NUR ---
Cayetano gallagher in [facility] - 02/27/22 at 0545 by [facility] PT REPORTED PAIN 08/08. BENEDICTOD MADE AWARE RECEIVED VERBAL ORDER FOR MORPHINE 4MG IVP AND ZOFRAN 4MG IVP
--- NOTE | 2022-02-27 05:43 | NUR ---
PT STATED SHE HAS PAIN 08/08. NANCY MILIAN MADE AWARE.
[2022-02-27] MEDS ORDERED: MORPHINE SULFATE 10 MG/ML VIAL IVP ONE (05:45)
[2022-02-27] MEDS ORDERED: CEPH500T PO (06:08)
--- NOTE | 2022-02-27 06:08 | NUR ---
PT'S BP WAS NOT HIGH ENOUGH FOR 6MG OF MORPHINE. NANCY MILIAN MADE AWARE. STATED SHE WILL CHANGE MEDICATION TO A PO.
[2022-02-27] MEDS ORDERED: HYDROcodone/APAP 10/325 MG 1 TAB TAB PO PRN (06:15)
--- NOTE | 2022-02-27 06:35 | NUR ---
The patient's care was reviewed and supervised by Yolanda High RN, RN.
[2022-02-27 06:40] VITALS: BP 112/67
--- NOTE | 2022-02-27 06:40 | NUR ---
Patient discharged with v/s stable. Written and verbal after care instructions given on UTI, Endometriosis and explained. Patient alert, oriented and verbalized understanding of instructions. Ambulatory with steady gait. All questions addressed prior to discharge. ID band removed. Patient advised to follow up with PMD. Rx of Cephalexin given.
== END 2022-02-27 06:40 | disposition home or self-care (01) ==
LOC: MED 01:59
DX: N80.9 Endometriosis, unspecified (principal); G89.29 Other chronic pain; R11.0 Nausea; R19.7 Diarrhea, unspecified
CPT/HCPCS: 36415; 76830; 80053; 81001; 81025; 85025; 87086; 96361; 96365; 96375; 99285; J0696; J2270; J2405; J7030; Q0092

== ENCOUNTER 2022-03-04 00:08 | Emergency (ER) | payer OTHER ==
[~2022-03-04] VITALS: Ht 167.6 cm; Wt 81.6 kg
[~2022-03-04 00:08] MED LIST changes: +CEPH500T PO
[2022-03-04 00:14] VITALS: BP 128/85
[2022-03-04] MEDS ORDERED: HYDROcodone/APAP 5/325 MG 1 TAB TAB PO ONE (00:40)
[2022-03-04] MEDS ORDERED: ACETAMINOPHEN 325 MG TAB PO ONE (00:40)
[2022-03-04 01:03] LABS: APPEARANCE,URINE CLEAR (CLEAR); BILIRUBIN,URINE NEGATIVE (NEGATIVE); BLOOD, URINE NEGATIVE (NEGATIVE); COLOR,URINE YELLOW (YELLOW); LEUKOCYTE ESTERASE ,URINE 1+ (NEGATIVE); NITRITE, URINE NEGATIVE (NEGATIVE); PH,URINE 7.5 (5.0-9.0); UGLUCOSE NEGATIVE (NEGATIVE)
[2022-03-04] MEDS ORDERED: KETOROLAC 30 MG/ML VIAL IM ONE (01:10)
[2022-03-04 01:24] LABS: RBC,URINE 0-5 /HPF (0-5)
[2022-03-04] MEDS ORDERED: LORazepam 0.5 MG TAB PO ONE (01:40)
[2022-03-04] MEDS ORDERED: cefTRIAXone 1,000 MG VIAL ONE (02:04)
[2022-03-04] MEDS ORDERED: MORPHINE SULFATE 4 MG/ML SYR IVP ONE (03:00)
[2022-03-04] MEDS ORDERED: CEPH-588 PO (03:54)
[2022-03-04] MEDS ORDERED: ACET-8386 PO (03:54)
[2022-03-04 04:08] VITALS: BP 110/71
== END 2022-03-04 04:08 | disposition home or self-care (01) ==
LOC: MED 00:08
DX: N39.0 Urinary tract infection, site not specified (principal); J45.909 Unspecified asthma, uncomplicated; K21.9 Gastro-esophageal reflux disease without esophagitis; Z90.710 Acquired absence of both cervix and uterus; Z90.49 Acquired absence of other specified parts of digestive tract; Z79.891 Long term (current) use of opiate analgesic; Z79.2 Long term (current) use of antibiotics; Z79.899 Other long term (current) drug therapy; Z88.6 Allergy status to analgesic agent; Z88.2 Allergy status to sulfonamides; Z88.8 Allergy status to other drugs, medicaments and biological substances
CPT/HCPCS: 81001; 81025; 87086; 96365; 96375; 99284; J0696; J2270; J1885

== ENCOUNTER 2022-03-29 21:17 | Emergency (ER) | payer OTHER ==
[~2022-03-29] VITALS: Ht 167.6 cm; Wt 84.8 kg
[~2022-03-29 21:17] MED LIST changes: +CEPH-588 PO
[2022-03-29 21:32] VITALS: BP 103/77
--- NOTE | 2022-03-29 21:37 | NUR ---
patient to bed 1 ambulatory
--- NOTE | 2022-03-29 21:40 | NUR ---
PATIENT AMBULATED TO THE BATHROOM
--- NOTE | 2022-03-29 22:40 | NUR ---
37 YO/F BIB SELF W C/O PELVIC PAIN STABBING/CRAMPING 08/08, LOWER BACK PAIN MARILUZ 08/08, AND R FLANK PAIN BURNING 08/08 ALL PAIN CHRONIC W WORSENING EPISODES X1 DAY, + N/V/D,+ PAINFUL URINATION ONGOING SINCE HYSTERECTOMY, + WRESTLESS, AND ANXIETY WORSENING. PT SEEN AT ANOTHER HOSPITAL GIVEN MORPHINE/ZOFRAN W/O RELIEF AT 1900, DIAGNOSED W UTI AND PRESCRIBED TRAMADOL AND KEFLEX. DENIES CHEST PAIN, SOB, OR FEVERS. PT LAYING IN BED LOCKED IN LOWEST POSITION W X2 SIDERAILS UP FOR PT SAFETY. WILL CONTINUE TO MONITOR. PMH: OVARIAN CYST, PARTAL HYSTERECTOMY (2020),ENDOMETRIOSIS ALLERGIES: SULFA, IBUPROFEN, NAPROXEN, PROMETHAZINE, TORADOL
[2022-03-29] MEDS ORDERED: LORazepam 1 MG TAB PO ONE (23:00)
[2022-03-29] MEDS ORDERED: MORPHINE SULFATE 4 MG/ML SYR IM ONE (23:50)
--- NOTE | 2022-03-30 00:03 | NUR ---
Pt report given to PRERNA MORENO. Transfer of care at this time.
--- NOTE | 2022-03-30 00:04 | NUR ---
RECEIVED REPORT FROM MARILIA FISHER FOR TRANSFER OF CARE. PATIENT IS STABLE.
--- NOTE | 2022-03-30 00:10 | NUR ---
PATIENT IS AWAKE AND STABLE. A&OX4. VERBALLY RESPONSIVE AND ABLE TO COMMUNICATE NEEDS. ON ROOM AIR WITH NO APPARENT S/SX OF ACUTE DISTRESS. RESPIRATIONS EVEN AND UNLABORED. PT IS C/O ABD PAIN. WILL CONTINUE TO MONITOR.
[2022-03-30] MEDS ORDERED: ACET-8386 PO (01:44)
[2022-03-30 01:58] VITALS: BP 103/77
--- NOTE | 2022-03-30 01:58 | NUR ---
Patient discharged with v/s stable. Written and verbal after care instructions given and explained. Patient alert, oriented and verbalized understanding of instructions. Ambulatory with steady gait. All questions addressed prior to discharge. ID band removed. Patient advised to follow up with PMD. Rx of NORCO-5 given. Patient REVIEWED on indication of medication including possible reaction and side effects. Opportunity to ask questions provided and answered.
--- NOTE | 2022-03-30 01:58 | NUR ---
The patient's care was reviewed and supervised by Ange Brito RN.
== END 2022-03-30 01:58 | disposition home or self-care (01) ==
LOC: MED 21:17
DX: R10.30 Lower abdominal pain, unspecified (principal); F41.9 Anxiety disorder, unspecified; R11.2 Nausea with vomiting, unspecified; R06.02 Shortness of breath; J45.909 Unspecified asthma, uncomplicated; K21.9 Gastro-esophageal reflux disease without esophagitis; Z90.49 Acquired absence of other specified parts of digestive tract; Z90.710 Acquired absence of both cervix and uterus; Z79.899 Other long term (current) drug therapy; Z88.2 Allergy status to sulfonamides; Z88.6 Allergy status to analgesic agent; Z88.8 Allergy status to other drugs, medicaments and biological substances
CPT/HCPCS: 81002; 81025; 96372; 99283; J2270

== ENCOUNTER 2022-04-02 11:59 | Emergency (ER) | payer OTHER ==
[~2022-04-02] VITALS: Ht 167.6 cm; Wt 83.9 kg
[2022-04-02 12:16] VITALS: BP 120/75
--- NOTE | 2022-04-02 12:23 | NUR ---
pt ambulated with steady gait to bed 12
--- NOTE | 2022-04-02 12:52 | NUR ---
37 Y/O FEMALE BIB SELF, C/O 08/08 STABBING PELVIC PAIN RADIATING TO THE RIGHT LEG AND LOWER BACK, STATES THEY HAVE PAIN DURING URINATION, DENIES HEMATURIA, STATES THAT THIS IS A COMPLICATION OF HER PARTIAL HYSTERECTOMY 2020. STATED THEY HAVE GRAYISH VAGINAL DISCHARGE X2DAYS. N/V/D X2DAYS TOOK ZOFRAN 4MG AND IMMODIUM WITHOUT RELIEF. TOOK ABILIFY AND BENZOTROPINE AT 8AM AND ATIVAN AT 11AM, STATED THAT SHE FELT DIZZY. ALLERGIES: SULFA, NAPROXEN, IBUPROFEN, TORDAL, FORMETHEZINE PMH: BIPOLAR, DEPRESSION, ANXIETY, EMDOMETRIOSIS, PARTIAL HYSERECTOMY 2020
--- NOTE | 2022-04-02 13:25 | NUR ---
LAB AT BEDSIDE OBTAINING BLOOD.
--- NOTE | 2022-04-02 13:30 | NUR ---
ULTRASOUND AT BEDSIDE.
[2022-04-02 13:38] LABS: BASOPHILS % (AUTO) 0.2 % (0.0-2.0); EOSINOPHILS # (AUTO) 0.2 K/uL (0-0.4); EOSINOPHILS % (AUTO) 2.2 % (0.0-4.0); HEMATOCRIT 38.6 % (36-48); HEMOGLOBIN 12.8 g/dL (12.0-16.0); LYMPHOCYTES # (AUTO) 1.4 K/uL (2.5-16.5); LYMPHOCYTES % (AUTO) 19.3 % (20.5-51.1); MEAN CORPUSCULAR HEMOGLOBIN 29 pg (27-31); MEAN CORPUSCULAR HGB CONC 33 g/dL (33-37); MEAN CORPUSCULAR VOLUME 86.7 fL (80-94); MONOCYTES # (AUTO) 0.4 K/uL (0.8-1.0); MONOCYTES % (AUTO) 5.4 % (1.7-9.3); NEUTROPHILS # (AUTO) 5.1 K/uL (1.8-7.7); NEUTROPHILS % (AUTO) 72.9 % (42.2-75.2); PLATELET COUNT (AUTO) 299 K/uL (140-450); RED BLOOD CELL COUNT(AUTO) 4.45 MIL/uL (4.20-5.40); RED CELL DISTRIBUTION WIDTH 13.5 % (11.6-13.7)
[2022-04-02 13:57] LABS: ALBUMIN 4.3 g/dL (3.4-5.0); ANION GAP 11.3 (8-16); CARBON DIOXIDE 27.8 mmol/L (21-32); CREATININE 0.7 mg/dL (0.6-1.3); POTASSIUM 4.1 mmol/L (3.5-5.1); TOTAL BILIRUBIN 0.5 mg/dL (0.0-1.0)
[2022-04-02] MEDS ORDERED: MORPHINE SULFATE 4 MG/ML SYR IVP ONE (14:30)
[2022-04-02 15:12] LABS: APPEARANCE,URINE CLEAR (CLEAR); BILIRUBIN,URINE NEGATIVE (NEGATIVE); BLOOD, URINE NEGATIVE (NEGATIVE); LEUKOCYTE ESTERASE ,URINE NEGATIVE (NEGATIVE); NITRITE, URINE NEGATIVE (NEGATIVE); UGLUCOSE NEGATIVE (NEGATIVE)
[2022-04-02 15:19] LABS: COLOR,URINE STRAW (YELLOW)
[2022-04-02 15:26] VITALS: BP 100/60
--- NOTE | 2022-04-02 15:33 | NUR ---
PT STATED A DECREASE IN JITTERINESS AND PAIN FROM 08/08 TO NOW 05/08
[2022-04-02] MEDS ORDERED: ACET-10509 PO (15:38)
[2022-04-02] MEDS ORDERED: GABA300C PO (15:38)
[2022-04-02 15:40] LABS: BARBITURATE, URINE NEGATIVE ng/ml (NEG <=200); BENZODIAZEPINE, URINE NEGATIVE ng/mL (NEG <=200)
[2022-04-02 15:41] LABS: CANNABINOID, URINE NEGATIVE ng/mL (NEG <=50); COCAINE, URINE NEGATIVE ng/mL (NEG <=300); OPIATE, URINE POSITIVE ng/mL (NEG <=2000); PHENCYCLIDINE SCREEN,URINE NEGATIVE ng/mL (NEG <=25)
--- NOTE | 2022-04-02 16:06 | NUR ---
Patient discharged with v/s stable. Written and verbal after care instructions ABOUT OVARIAN CYST given and explained. Patient alert, oriented and verbalized understanding of instructions. Ambulatory with steady gait. All questions addressed prior to discharge. ID band removed. Patient advised to follow up with PMD. Rx of GABAPENTIN, TYLENOL EXTRA STRENGTH given. Patient educated on indication of medication including possible reaction and side effects. Opportunity to ask questions provided and answered.
== END 2022-04-02 16:05 | disposition home or self-care (01) ==
LOC: MED 11:59
DX: N83.202 Unspecified ovarian cyst, left side (principal); R10.2 Pelvic and perineal pain; J45.909 Unspecified asthma, uncomplicated; K21.9 Gastro-esophageal reflux disease without esophagitis; F31.9 Bipolar disorder, unspecified; F41.9 Anxiety disorder, unspecified; Z90.49 Acquired absence of other specified parts of digestive tract; Z90.710 Acquired absence of both cervix and uterus; Z79.891 Long term (current) use of opiate analgesic; Z79.2 Long term (current) use of antibiotics; Z79.899 Other long term (current) drug therapy; Z88.6 Allergy status to analgesic agent; Z88.2 Allergy status to sulfonamides; Z88.8 Allergy status to other drugs, medicaments and biological substances
CPT/HCPCS: 36415; 74176; 76856; 80053; 80305; 81003; 82150; 83690; 84703; 85025; 93976; 96374; 99284; J2270; Q0092

== ENCOUNTER 2022-04-13 17:45 | Emergency (ER) | payer OTHER ==
[~2022-04-13] VITALS: Ht 167.6 cm; Wt 85.3 kg
[~2022-04-13 17:45] MED LIST changes: +ACET-10509 PO; +GABA300C PO
[2022-04-13 18:04] VITALS: BP 133/72
--- NOTE | 2022-04-13 18:39 | NUR ---
PT AMBULATED TO BED 11 WITH STEADY GAIT
--- NOTE | 2022-04-13 18:55 | NUR ---
37/F BIB SELF WITH C/O PELVIC PAIN RADIATING TO HER LOWER BACK X3 DAYS. STATES HX OF ENDOMETRIOSIS, STATING SHE HAS EXPERIENCED THIS PAIN BEFORE. PATIENT REPORTS EPISODES OF N/V, DYSURIA, VAGINAL ITCHING AND A "GRAYISH DISCHARGE" SINCE YESTERDAY. STATES SHE TOOK TRAMADOL AND USED VAGISIL BOTH OF WHICH PROVIDED NO RELIEF. DENIES FEVERS, CHILLS, OR CONCERNS FOR STDS.
[2022-04-13 19:07] LABS: BILIRUBIN,URINE NEGATIVE (NEGATIVE); BLOOD, URINE NEGATIVE (NEGATIVE); COLOR,URINE RED (YELLOW); LEUKOCYTE ESTERASE ,URINE 1+ (NEGATIVE); NITRITE, URINE NEGATIVE (NEGATIVE); UGLUCOSE NEGATIVE (NEGATIVE)
[2022-04-13 19:14] LABS: APPEARANCE,URINE HAZY (CLEAR)
--- NOTE | 2022-04-13 19:17 | NUR ---
Pt report given to MARILIA KUMAR. Transfer of care at this time.
--- NOTE | 2022-04-13 19:45 | NUR ---
PT AMBULATE TO RESTROOM
[2022-04-13] MEDS ORDERED: MORPHINE SULFATE 4 MG/ML SYR IM ONE (19:55)
[2022-04-13] MEDS ORDERED: ONDANSETRON 4 MG/2 ML VIAL IVP ONE (20:10)
[2022-04-13] MEDS ORDERED: ACET-8386 PO (20:50)
[2022-04-13] MEDS ORDERED: ONDA8TAB87 PO (20:50)
[2022-04-13] MEDS ORDERED: CIPR500T4 PO (20:50)
[2022-04-13 21:05] VITALS: BP 114/79
--- NOTE | 2022-04-13 21:05 | NUR ---
Patient discharged with v/s stable. Written and verbal after care instructions given and explained. Patient alert, oriented and verbalized understanding of instructions. Ambulatory with steady gait. All questions addressed prior to discharge. ID band removed. Patient advised to follow up with PMD. Rx of HYDROCODONE/ACETAMINOPHEN, CIPROFLOXACIN HCL, AND ONDANSETRON given. Patient educated on indication of medication including possible reaction and side effects. Opportunity to ask questions provided and answered.
== END 2022-04-13 21:05 | disposition home or self-care (01) ==
LOC: MED 17:45
DX: N12 Tubulo-interstitial nephritis, not specified as acute or chronic (principal); J45.909 Unspecified asthma, uncomplicated; K21.9 Gastro-esophageal reflux disease without esophagitis; Z90.49 Acquired absence of other specified parts of digestive tract; Z90.710 Acquired absence of both cervix and uterus; Z98.890 Other specified postprocedural states; Z79.899 Other long term (current) drug therapy; Z79.2 Long term (current) use of antibiotics; Z79.891 Long term (current) use of opiate analgesic; Z88.6 Allergy status to analgesic agent; Z88.2 Allergy status to sulfonamides; Z88.8 Allergy status to other drugs, medicaments and biological substances
CPT/HCPCS: 81025; 87086; 96374; 96375; 99284; J2270; J2405

== ENCOUNTER 2022-05-14 03:29 | Emergency (ER) | payer OTHER ==
[~2022-05-14] VITALS: Ht 167.6 cm; Wt 89.0 kg
[~2022-05-14 03:29] MED LIST changes: +ONDA8TAB87 PO
[2022-05-14 03:35] VITALS: BP 140/97
--- NOTE | 2022-05-14 03:59 | NUR ---
RECEIVED IN BED 11 WITH C/O PELVIC PAIN X 2 DAYS. PATIENT STATES PAIN 10/10 AND OTC RX NOT WORKING. PATIENT UNABLE TO RECIVE REFFERAL FOR OBGYN AT THIS TIME. MEDHX: ENDOMETRIOSIS, OVARIAN CYSTS, PARTIAL HYSTERECTOMY. ALLERGIES:SEE LIST.
--- NOTE | 2022-05-14 04:46 | NUR ---
Dr. Tran examining patient.
[2022-05-14] MEDS ORDERED: ONDANSETRON 4 MG ODT PO ONE ×2 (04:55→08:35)
[2022-05-14] MEDS ORDERED: MORPHINE SULFATE 10 MG/ML VIAL IVP ONE (04:55)
--- NOTE | 2022-05-14 05:20 | NUR ---
PT RETURN FROM CT
--- NOTE | 2022-05-14 05:20 | NUR ---
RETURNED FROM CT
--- NOTE | 2022-05-14 07:25 | NUR ---
Pt AOX4, able to make needs known. Resp even and unlabored. Resting well in bed. No c/o pain at this time. All safety measures in place, call light in reach. Pt denies N/V/D/CP at this time. No SOb noted. Pt disconnected from monitor to ambulate steadily to restroom. Pt returned to bed 11.
[2022-05-14] MEDS ORDERED: ACETAMINOPHEN EXTRA STRENGTH 500 MG TAB PO ONE (08:35)
--- NOTE | 2022-05-14 08:37 | NUR ---
Requested re-evaluation for disposition for pt from Dr Walker. Will look over chart and speak to pt.
[2022-05-14] MEDS ORDERED: LOPE1TAB14 PO (08:40)
[2022-05-14] MEDS ORDERED: ACET-10509 PO (08:40)
[2022-05-14] MEDS ORDERED: ONDA-188 PO (08:40)
[2022-05-14 09:04] VITALS: BP 105/61
--- NOTE | 2022-05-14 09:05 | NUR ---
Patient discharged with v/s stable. Written and verbal after care instructions given and explained. Patient alert, oriented and verbalized understanding of instructions. Ambulatory with steady gait. All questions addressed prior to discharge. ID band removed. Patient advised to follow up with PMD. Rx of tylenol extra strength, zofran odt, immodium given. Patient educated on indication of medication including possible reaction and side effects. Opportunity to ask questions provided and answered.
== END 2022-05-14 09:04 | disposition home or self-care (01) ==
LOC: MED 03:29
DX: A08.4 Viral intestinal infection, unspecified (principal); G89.29 Other chronic pain; R10.2 Pelvic and perineal pain; Z90.710 Acquired absence of both cervix and uterus
CPT/HCPCS: 74176; 81002; 81025; 96374; 99285; J2270; Q0162

== ENCOUNTER 2022-08-03 23:30 | Emergency (ER) | payer OTHER ==
[~2022-08-03] VITALS: Ht 167.6 cm; Wt 88.9 kg
[~2022-08-03 23:30] MED LIST changes: +LOPE1TAB14 PO; +ONDA-188 PO
[2022-08-03 23:58] VITALS: BP 138/87
--- NOTE | 2022-08-04 02:01 | NUR ---
Patient ambulated to bed 11.
--- NOTE | 2022-08-04 02:10 | NUR ---
Dr. Gibson examining patient.
[2022-08-04] MEDS ORDERED: MORPHINE SULFATE 4 MG/ML SYR IM ONE (02:15)
--- NOTE | 2022-08-04 02:15 | NUR ---
C/O Pelvic pain x 4 days. Patient reported, had pelvic pain for 4 days. 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
[2022-08-04] MEDS ORDERED: DICYCLOMINE 20 MG/2 ML VIAL IM ONE (02:50)
[2022-08-04] MEDS ORDERED: ONDANSETRON 4 MG ODT PO ONE (02:50)
[2022-08-04] MEDS ORDERED: ACET-8386 PO (03:45)
[2022-08-04 04:06] VITALS: BP 116/68
--- NOTE | 2022-08-04 04:06 | NUR ---
Patient discharged with v/s stable. Written and verbal after care instructions given and explained. Patient alert, oriented and verbalized understanding of instructions. Ambulatory with steady gait. All questions addressed prior to discharge. ID band removed. Patient advised to follow up with PMD. Rx of [place] given. Patient educated on indication of medication including possible reaction and side effects. Opportunity to ask questions provided and answered.
== END 2022-08-04 04:06 | disposition home or self-care (01) ==
LOC: MED 23:30
DX: R10.2 Pelvic and perineal pain (principal); J45.909 Unspecified asthma, uncomplicated; K21.9 Gastro-esophageal reflux disease without esophagitis; Z88.2 Allergy status to sulfonamides; Z88.6 Allergy status to analgesic agent; Z88.8 Allergy status to other drugs, medicaments and biological substances; Z79.899 Other long term (current) drug therapy
CPT/HCPCS: 81002; 81025; 96372; 99284; J0500; J2270; Q0162

== ENCOUNTER 2022-11-09 14:00 | Emergency (ER) | payer OTHER ==
[~2022-11-09] VITALS: Ht 167.6 cm; Wt 96.6 kg
[2022-11-09 14:12] VITALS: BP 137/89
[2022-11-09] MEDS ORDERED: MORPHINE SULFATE 10 MG/ML VIAL IVP ONE (14:50)
[2022-11-09] MEDS ORDERED: ONDANSETRON 4 MG/2 ML VIAL IVP ONE (14:50)
[2022-11-09] MEDS ORDERED: NACL 0.9% 1,000 ML IV ONE (14:55)
[2022-11-09 15:24] LABS: BASOPHILS % (AUTO) 0.3 % (0.0-2.0); EOSINOPHILS # (AUTO) 0.1 K/uL (0-0.4); EOSINOPHILS % (AUTO) 1.3 % (0.0-4.0); HEMATOCRIT 40.6 % (36-48); HEMOGLOBIN 13.8 g/dL (12.0-16.0); LYMPHOCYTES # (AUTO) 1.6 K/uL (2.5-16.5); MEAN CORPUSCULAR HEMOGLOBIN 29 pg (27-31); MEAN CORPUSCULAR HGB CONC 34 g/dL (33-37); MEAN CORPUSCULAR VOLUME 85.6 fL (80-94); MONOCYTES # (AUTO) 0.8 K/uL (0.8-1.0); MONOCYTES % (AUTO) 8.7 % (1.7-9.3); NEUTROPHILS # (AUTO) 6.8 K/uL (1.8-7.7); NEUTROPHILS % (AUTO) 72.7 % (42.2-75.2); PLATELET COUNT (AUTO) 289 K/uL (140-450); RED BLOOD CELL COUNT(AUTO) 4.74 MIL/uL (4.20-5.40); RED CELL DISTRIBUTION WIDTH 13.8 % (11.6-13.7); WHITE BLOOD COUNT (AUTO) 9.3 K/uL (4.8-10.8)
[2022-11-09 15:48] LABS: ALBUMIN 3.7 g/dL (3.4-5.0); ANION GAP 6.8 (8-16); CARBON DIOXIDE 26.8 mmol/L (21-32); CREATININE 0.8 mg/dL (0.6-1.3); POTASSIUM 3.6 mmol/L (3.5-5.1); TOTAL BILIRUBIN 0.5 mg/dL (0.0-1.0)
[2022-11-09 16:33] LABS: APPEARANCE,URINE CLEAR (CLEAR); BILIRUBIN,URINE NEGATIVE (NEGATIVE); BLOOD, URINE NEGATIVE (NEGATIVE); COLOR,URINE YELLOW (YELLOW); LEUKOCYTE ESTERASE ,URINE NEGATIVE (NEGATIVE); NITRITE, URINE NEGATIVE (NEGATIVE); UGLUCOSE NEGATIVE (NEGATIVE)
[2022-11-09] MEDS ORDERED: MORPHINE SULFATE 4 MG/ML SYR IVP ONE (16:45)
[2022-11-09] MEDS ORDERED: DICYCLOMINE HCL LIQUID 20 MG, ALUMINUM HYD/MAG/SIMETHICONE 30 ML, LIDOCAINE VISCOUS 2% ... PO ONE ×3 (16:45)
[2022-11-09] MEDS ORDERED: FAMOTIDINE 20 MG/2 ML VIAL IVP ONE (16:45)
[2022-11-09] MEDS ORDERED: HYDR-5080 PO (17:04)
[2022-11-09] MEDS ORDERED: NAPR-1871 PO (17:04)
[2022-11-09] MEDS ORDERED: DICYCLOMINE HCL LIQUID 10 MG/5 ML UDC ONE (17:07)
[2022-11-09] MEDS ORDERED: ALUMINUM HYD/MAG/SIMETHICONE 30 ML UDC ONE (17:07)
[2022-11-09 17:50] VITALS: BP 128/75
--- NOTE | 2022-11-09 17:50 | NUR ---
Patient discharged with v/s stable. Written and verbal after care instructions given and explained. Patient alert, oriented and verbalized understanding of instructions. Ambulatory with steady gait. All questions addressed prior to discharge. ID band removed. Patient advised to follow up with PMD. Rx of HYDROCODONE/ACETAMINOPHEN, NAPROXEN given. Patient educated on indication of medication including possible reaction and side effects. Opportunity to ask questions provided and answered.
== END 2022-11-09 17:50 | disposition home or self-care (01) ==
LOC: MED 14:00
DX: R10.2 Pelvic and perineal pain (principal); K21.9 Gastro-esophageal reflux disease without esophagitis; I10 Essential (primary) hypertension; Z79.899 Other long term (current) drug therapy; Z88.2 Allergy status to sulfonamides; Z79.1 Long term (current) use of non-steroidal anti-inflammatories (NSAID); Z88.8 Allergy status to other drugs, medicaments and biological substances; Z90.49 Acquired absence of other specified parts of digestive tract; Z90.710 Acquired absence of both cervix and uterus
CPT/HCPCS: 36415; 76830; 80053; 81003; 81025; 83690; 85025; 96361; 96374; 96375; 99284; J2270; J2405; J3490; J7030; Q0092

== ENCOUNTER 2022-12-30 18:38 | Emergency (ER) | payer OTHER ==
[~2022-12-30] VITALS: Ht 167.6 cm; Wt 99.8 kg
[~2022-12-30 18:38] MED LIST changes: -ACET-8386 PO; +ACET-8905 PO; +HYDR-5080 PO; +NAPR-1871 PO
[2022-12-30 18:44] VITALS: BP 101/47
--- NOTE | 2022-12-30 18:52 | NUR ---
Pt ambulated to bed 07 steady/even gait.
[2022-12-30] MEDS ORDERED: MORPHINE SULFATE 4 MG/ML SYR IVP ONE ×2 (19:10→20:25)
[2022-12-30 19:21] LABS: BASOPHILS # (AUTO) 0.1 K/uL (0.00-0.22); BASOPHILS % (AUTO) 0.5 % (0.0-2.0); EOSINOPHILS # (AUTO) 0.2 K/uL (0-0.4); EOSINOPHILS % (AUTO) 1.8 % (0.0-4.0); HEMATOCRIT 40.2 % (36-48); HEMOGLOBIN 13.7 g/dL (12.0-16.0); LYMPHOCYTES # (AUTO) 2.4 K/uL (2.5-16.5); LYMPHOCYTES % (AUTO) 20.3 % (20.5-51.1); MEAN CORPUSCULAR HEMOGLOBIN 29 pg (27-31); MEAN CORPUSCULAR HGB CONC 34 g/dL (33-37); MEAN CORPUSCULAR VOLUME 85.9 fL (80-94); MONOCYTES # (AUTO) 0.9 K/uL (0.8-1.0); MONOCYTES % (AUTO) 7.2 % (1.7-9.3); NEUTROPHILS # (AUTO) 8.4 K/uL (1.8-7.7); NEUTROPHILS % (AUTO) 70.2 % (42.2-75.2); PLATELET COUNT (AUTO) 274 K/uL (140-450); RED BLOOD CELL COUNT(AUTO) 4.68 MIL/uL (4.20-5.40); RED CELL DISTRIBUTION WIDTH 13.6 % (11.6-13.7)
[2022-12-30] MEDS ORDERED: ONDANSETRON 4 MG/2 ML VIAL IVP ONE (19:30)
[2022-12-30 19:40] LABS: ALBUMIN 4.1 g/dL (3.4-5.0); ANION GAP 9.5 (8-16); CREATININE 0.7 mg/dL (0.6-1.3); POTASSIUM 3.5 mmol/L (3.5-5.1); TOTAL BILIRUBIN 0.5 mg/dL (0.0-1.0)
--- NOTE | 2022-12-30 19:40 | NUR ---
37 Y/O F PRESENTS WITH ENDOMETRIOSIS AND ABDOMINAL PAIN / RADIATING TO R UPPER LEG. PT STATED SHE HAS NVDX2 EPISDOES AND VISION BLURRY. PT STATED SHE TOOK TYLENOL YESTERDAY WITH NO RELIEF. PT IS A&OX4, SKIN INTACT, AMBULATORY. PMH-ANXIETY, DEPRESSION,ENDOMETRIOSIS ALLERGIES- IBUPROFEN, NAPROXEN, TORADOL, AND SULFA DRUGS
--- NOTE | 2022-12-30 19:40 | NUR ---
PT ON RECENTERER WITH PAIN 09/07 PT STATED
--- NOTE | 2022-12-30 19:41 | NUR ---
US AT BEDSIDE
[2022-12-30 19:45] VITALS: BP 128/84
[2022-12-30 19:48] LABS: APPEARANCE,URINE CLEAR (CLEAR); BILIRUBIN,URINE NEGATIVE (NEGATIVE); BLOOD, URINE NEGATIVE (NEGATIVE); COLOR,URINE YELLOW (YELLOW); LEUKOCYTE ESTERASE ,URINE NEGATIVE (NEGATIVE); NITRITE, URINE NEGATIVE (NEGATIVE); UGLUCOSE NEGATIVE (NEGATIVE)
--- NOTE | 2022-12-30 20:30 | NUR ---
DR. BEN OSEI BEDSIDE
--- NOTE | 2022-12-30 20:49 | NUR ---
Chart checked and completed.
== END 2022-12-30 20:49 | disposition home or self-care (01) ==
LOC: MED 18:38
DX: R10.2 Pelvic and perineal pain (principal); J45.909 Unspecified asthma, uncomplicated; K21.9 Gastro-esophageal reflux disease without esophagitis; Z88.1 Allergy status to other antibiotic agents; Z88.2 Allergy status to sulfonamides; Z88.5 Allergy status to narcotic agent; Z88.8 Allergy status to other drugs, medicaments and biological substances; Z90.710 Acquired absence of both cervix and uterus
CPT/HCPCS: 36415; 76830; 80053; 81003; 81025; 83690; 85025; 96374; 96375; 96376; 99285; J2270; J2405; Q0092

== ENCOUNTER 2023-01-26 21:51 | Emergency (ER) | payer OTHER ==
--- NOTE | 2023-01-26 22:33 | NUR ---
Note undone in EDM - 01/26/23 at 2243 by [email or web address] Patient discharged ER MD aware of Vital Signs. Written and verbal after care instructions given and explained to parent/guardian. Parent/Guardian verbalized understanding of instructions. Pt in a stroller with guardian. All questions addressed prior to discharge. ID band removed. Parent/Guardian advised to follow up with PMD. Rx of amoxicillin, children's tylenol and children's ibuprofen given. Parent/Guardian educated on indication of medication including possible reaction and side effects. Opportunity to ask questions provided and answered.
--- NOTE | 2023-01-26 22:33 | NUR ---
Called no show in lobby or outside.
--- NOTE | 2023-01-26 22:55 | NUR ---
Called second time- no show in lobby or outside.
--- NOTE | 2023-01-26 22:55 | NUR ---
Patient left before triage.
== END 2023-01-26 22:55 | disposition left against medical advice (07) ==
LOC: MED 21:51
DX: M54.9 Dorsalgia, unspecified (principal); Z53.21 Procedure and treatment not carried out due to patient leaving prior to being seen by health care provider

== ENCOUNTER 2023-07-10 22:29 | Emergency (ER) | payer OTHER ==
[~2023-07-10] VITALS: Ht 167.6 cm; Wt 97.5 kg
[2023-07-10 22:37] VITALS: BP 124/78; PULSE 123; RESP 16; TEMP 97.5; O2SAT 99
[2023-07-11] MEDS ORDERED: HYDROmorphone PFS 2 MG/ML SYR IVP ONE ×2 (01:10→03:30)
[2023-07-11] MEDS ORDERED: NACL 0.9% 1,000 ML IV ONE ×2 (01:10→03:30)
[2023-07-11] MEDS ORDERED: ONDANSETRON 4 MG/2 ML VIAL IVP ONE ×3 (01:10→08:20)
[2023-07-11 02:01] LABS: APPEARANCE,URINE CLEAR (CLEAR); BILIRUBIN,URINE NEGATIVE (NEGATIVE); BLOOD, URINE NEGATIVE (NEGATIVE); COLOR,URINE YELLOW (YELLOW); LEUKOCYTE ESTERASE ,URINE NEGATIVE (NEGATIVE); NITRITE, URINE NEGATIVE (NEGATIVE); PH,URINE 6.5 (5.0-9.0); PROTEIN,URINE NEGATIVE (NEGATIVE); UGLUCOSE NEGATIVE (NEGATIVE); UROBILINOGEN,URINE 0.2 EU/dL (0.2 - 1)
[2023-07-11 02:03] LABS: BASOPHILS % (AUTO) 0.4 % (0.0-2.0); EOSINOPHILS # (AUTO) 0.2 K/uL (0-0.4); EOSINOPHILS % (AUTO) 1.7 % (0.0-4.0); HEMATOCRIT 43.8 % (36-48); HEMOGLOBIN 14.8 g/dL (12.0-16.0); LYMPHOCYTES % (AUTO) 27.7 % (20.5-51.1); MEAN CORPUSCULAR HEMOGLOBIN 29 pg (27-31); MEAN CORPUSCULAR HGB CONC 34 g/dL (33-37); MEAN CORPUSCULAR VOLUME 87.3 fL (80-94); MONOCYTES # (AUTO) 0.9 K/uL (0.8-1.0); MONOCYTES % (AUTO) 8.4 % (1.7-9.3); NEUTROPHILS # (AUTO) 6.7 K/uL (1.8-7.7); NEUTROPHILS % (AUTO) 61.8 % (42.2-75.2); PLATELET COUNT (AUTO) 277 K/uL (140-450); RED BLOOD CELL COUNT(AUTO) 5.02 MIL/uL (4.20-5.40); RED CELL DISTRIBUTION WIDTH 13.3 % (11.6-13.7); WHITE BLOOD COUNT (AUTO) 10.9 K/uL (4.8-10.8)
[2023-07-11 02:24] LABS: ANION GAP 15.1 (8-16); CALCIUM 8.8 mg/dL (8.5-10.1); CREATININE 0.6 mg/dL (0.6-1.3); POTASSIUM 4.1 mmol/L (3.5-5.1); TOTAL PROTEIN, SERUM 7.4 g/dL (6.4-8.2)
[2023-07-11 02:45] VITALS: O2SAT 98
[2023-07-11 06:26] VITALS: O2SAT 100
[2023-07-11] MEDS ORDERED: MORPHINE SULFATE 4 MG/ML SYR IVP ONE (08:20)
[2023-07-11 09:45] VITALS: O2SAT 100
[2023-07-11] MEDS ORDERED: ONDA-188 PO (10:09)
[2023-07-11 10:25] VITALS: BP 123/70; PULSE 99; RESP 14; TEMP 97.5; O2SAT 100
== END 2023-07-11 10:15 | disposition home or self-care (01) ==
LOC: MED 22:29
DX: N83.201 Unspecified ovarian cyst, right side (principal); R11.2 Nausea with vomiting, unspecified; R00.0 Tachycardia, unspecified; Z20.822 Contact with and (suspected) exposure to COVID-19; J45.909 Unspecified asthma, uncomplicated; K21.9 Gastro-esophageal reflux disease without esophagitis; Z79.899 Other long term (current) drug therapy; Z79.2 Long term (current) use of antibiotics; Z88.6 Allergy status to analgesic agent; Z88.2 Allergy status to sulfonamides; Z88.8 Allergy status to other drugs, medicaments and biological substances
CPT/HCPCS: 36415; 74177; 76856; 80053; 81003; 81025; 83690; 85025; 87426; 93976; 96361; 96374; 96375; 96376; 99285; J1170; J2270; J2405; Q0092; Q9967

== ENCOUNTER 2023-07-13 18:55 | Inpatient (IN) | payer OTHER ==
[~2023-07-13] VITALS: Ht 167.6 cm; Wt 97.5 kg
[2023-07-13 19:46] VITALS: BP 110/91; PULSE 135; RESP 22; TEMP 98.3; O2SAT 100
[2023-07-13] MEDS ORDERED: NACL 0.9% 1,000 ML IV SCH (20:15)
[2023-07-13 20:48] LABS: BASOPHILS # (AUTO) 0.1 K/uL (0.00-0.22); BASOPHILS % (AUTO) 0.4 % (0.0-2.0); EOSINOPHILS # (AUTO) 0.2 K/uL (0-0.4); EOSINOPHILS % (AUTO) 1.1 % (0.0-4.0); HEMATOCRIT 42.8 % (36-48); HEMOGLOBIN 14.5 g/dL (12.0-16.0); LYMPHOCYTES # (AUTO) 2.2 K/uL (2.5-16.5); LYMPHOCYTES % (AUTO) 13.6 % (20.5-51.1); MEAN CORPUSCULAR HEMOGLOBIN 29 pg (27-31); MEAN CORPUSCULAR HGB CONC 34 g/dL (33-37); MEAN CORPUSCULAR VOLUME 86.5 fL (80-94); MONOCYTES # (AUTO) 1.1 K/uL (0.8-1.0); MONOCYTES % (AUTO) 6.8 % (1.7-9.3); NEUTROPHILS # (AUTO) 12.4 K/uL (1.8-7.7); NEUTROPHILS % (AUTO) 78.1 % (42.2-75.2); PLATELET COUNT (AUTO) 313 K/uL (140-450); RED BLOOD CELL COUNT(AUTO) 4.95 MIL/uL (4.20-5.40); RED CELL DISTRIBUTION WIDTH 13.5 % (11.6-13.7); WHITE BLOOD COUNT (AUTO) 15.9 K/uL (4.8-10.8)
[2023-07-13] MEDS ORDERED: ONDANSETRON 4 MG/2 ML VIAL IVP ONE (20:50)
[2023-07-13] MEDS ORDERED: MORPHINE SULFATE 4 MG/ML SYR IVP ONE (20:50)
[2023-07-13 20:57] LABS: APPEARANCE,URINE CLEAR (CLEAR); BILIRUBIN,URINE NEGATIVE (NEGATIVE); BLOOD, URINE NEGATIVE (NEGATIVE); COLOR,URINE YELLOW (YELLOW); LEUKOCYTE ESTERASE ,URINE TRACE (NEGATIVE); NITRITE, URINE NEGATIVE (NEGATIVE); PH,URINE 5.5 (5.0-9.0); PROTEIN,URINE NEGATIVE (NEGATIVE); UGLUCOSE NEGATIVE (NEGATIVE); UROBILINOGEN,URINE 0.2 EU/dL (0.2 - 1)
[2023-07-13 21:17] LABS: ALANINE AMINOTRANSFERASE 21 U/L (12-78); ALKALINE PHOSPHATASE 63 U/L (50-136); ANION GAP 13.6 (8-16); ASPARTATE AMINOTRANSFERASE 15 U/L (15-37); CALCIUM 9.3 mg/dL (8.5-10.1); CARBON DIOXIDE 25.9 mmol/L (21-32); CHLORIDE 104 mmol/L (98-107); CREATININE 0.9 mg/dL (0.6-1.3); GFR ARICAN-AMERICAN 90 mL/min (>90); GFR NON ARICAN-AMERICAN 74 mL/min (>90); GLUCOSE 116 mg/dL (74-106); POTASSIUM 3.5 mmol/L (3.5-5.1); SODIUM SERUM 140 mmol/L (136-145); TOTAL BILIRUBIN 1.1 mg/dL (0.0-1.0); TOTAL PROTEIN, SERUM 7.9 g/dL (6.4-8.2); UREA NITROGEN, BLOOD 9 mg/dL (7-18)
[2023-07-13 21:23] LABS: BACTERIA,URINE 10-30 (MOD) /HPF (None Seen); RBC,URINE 0-5 /HPF (0-5); SQUAMOUS EPITHELIAL CELL,UR 4-10 (MOD) /LPF (0-3 (FEW))
[2023-07-13] MEDS ORDERED: NACL 0.9% 1,000 ML IV ONE (22:50)
[2023-07-13] MEDS ORDERED: HYDROmorphone PFS 2 MG/ML SYR IVP ONE (22:50)
[2023-07-13] MEDS ORDERED: cefTRIAXone 1,000 MG VIAL ONE (23:02)
[2023-07-13 23:50] LABS: LACTIC ACID 1.7 mmol/L (0.4-2.0)
[2023-07-14] MEDS ORDERED: HYDROcodone/APAP 5/325 MG 1 TAB TAB PO PRN (01:05)
[2023-07-14] MEDS ORDERED: ACETAMINOPHEN 325 MG TAB PO PRN (01:05)
[2023-07-14] MEDS ORDERED: LORazepam 2 MG/ML VIAL IVP PRN (01:05)
[2023-07-14] MEDS ORDERED: ARIP15TA1 PO (01:16)
[2023-07-14] MEDS ORDERED: OMEP20EC11 PO (01:16)
[2023-07-14] MEDS ORDERED: TIZA4CAP PO (01:16)
[2023-07-14] MEDS ORDERED: LYR75 PO (01:16)
[2023-07-14] MEDS ORDERED: AMIT75TA PO (01:16)
[2023-07-14 02:23] VITALS: PULSE 103; RESP 18; O2SAT 100
[2023-07-14] MEDS: NACL 0.9% 1,000 ML IV SCH ×2 (02:38→14:31)
[2023-07-14] MEDS: ONDANSETRON 4 MG/2 ML VIAL IVP PRN ×4 (02:52→21:48)
[2023-07-14] MEDS: MORPHINE SULFATE 2 MG/ML SYR IVP PRN ×5 (02:53→21:49)
[2023-07-14 03:02] VITALS: PULSE 103; RESP 18; O2SAT 100
[2023-07-14 04:21] VITALS: BP 117/72; PULSE 89; RESP 18; TEMP 98.2; O2SAT 99
[2023-07-14 08:00] VITALS: BP 117/86; PULSE 98; RESP 18; TEMP 98.5; O2SAT 97
[2023-07-14] MEDS: ENOXAPARIN 40 MG/0.4 ML SYR SUBQ SCH (08:20)
[2023-07-14] MEDS ORDERED: ALUMINUM HYD/MAG/SIMETHICONE 30 ML UDC PO PRN (13:20)
[2023-07-14 16:00] VITALS: BP 129/92; PULSE 97; RESP 18; TEMP 97.6; O2SAT 99
[2023-07-14 20:00] VITALS: PULSE 111; RESP 18; O2SAT 98
[2023-07-15] VITALS: BP 131/91; PULSE 111; RESP 18; TEMP 97.7; O2SAT 98
[2023-07-15] MEDS: ONDANSETRON 4 MG/2 ML VIAL IVP PRN ×3 (02:24→13:22)
[2023-07-15] MEDS: NACL 0.9% 1,000 ML IV SCH (02:28)
[2023-07-15] MEDS: MORPHINE SULFATE 2 MG/ML SYR IVP PRN ×3 (03:49→13:22)
[2023-07-15 05:11] LABS: ALBUMIN 3.6 g/dL (3.4-5.0); ANION GAP 11.3 (8-16); BASOPHILS % (AUTO) 0.3 % (0.0-2.0); CALCIUM 8.2 mg/dL (8.5-10.1); CARBON DIOXIDE 27.3 mmol/L (21-32); CREATININE 0.7 mg/dL (0.6-1.3); EOSINOPHILS # (AUTO) 0.1 K/uL (0-0.4); EOSINOPHILS % (AUTO) 0.6 % (0.0-4.0); HEMATOCRIT 37.3 % (36-48); HEMOGLOBIN 12.7 g/dL (12.0-16.0); LYMPHOCYTES # (AUTO) 1.7 K/uL (2.5-16.5); LYMPHOCYTES % (AUTO) 16.5 % (20.5-51.1); MAGNESIUM 2.1 mg/dL (1.8-2.4); MEAN CORPUSCULAR HEMOGLOBIN 30 pg (27-31); MEAN CORPUSCULAR HGB CONC 34 g/dL (33-37); MEAN CORPUSCULAR VOLUME 86.4 fL (80-94); MONOCYTES # (AUTO) 0.8 K/uL (0.8-1.0); MONOCYTES % (AUTO) 7.7 % (1.7-9.3); NEUTROPHILS # (AUTO) 7.6 K/uL (1.8-7.7); NEUTROPHILS % (AUTO) 74.9 % (42.2-75.2); PLATELET COUNT (AUTO) 283 K/uL (140-450); POTASSIUM 3.6 mmol/L (3.5-5.1); RED BLOOD CELL COUNT(AUTO) 4.32 MIL/uL (4.20-5.40); RED CELL DISTRIBUTION WIDTH 12.9 % (11.6-13.7); TOTAL BILIRUBIN 1.2 mg/dL (0.0-1.0); TOTAL PROTEIN, SERUM 7.1 g/dL (6.4-8.2); WHITE BLOOD COUNT (AUTO) 10.1 K/uL (4.8-10.8)
[2023-07-15 08:00] VITALS: BP 126/71; PULSE 86; RESP 18; TEMP 97.6; O2SAT 98
[2023-07-15] MEDS: ENOXAPARIN 40 MG/0.4 ML SYR SUBQ SCH (08:52)
[2023-07-15] MEDS ORDERED: CEFP200T20 PO (13:43)
[2023-07-15] MEDS ORDERED: TRAM50TA3 PO (13:43)
[2023-07-15 15:07] VITALS: BP 126/71; PULSE 86; RESP 18; TEMP 97.6
== END 2023-07-15 15:30 | disposition home or self-care (01) | DRG 720 ==
LOC: MED 18:55 → MMU 07-14 01:06 → MTU 07-14 01:59
PROVIDERS: ADMIT Internal Medicine; ATTEND Internal Medicine
DX: A41.9 Sepsis, unspecified organism (principal); F32.A Depression, unspecified; N39.0 Urinary tract infection, site not specified; J45.909 Unspecified asthma, uncomplicated; N83.201 Unspecified ovarian cyst, right side; N80.9 Endometriosis, unspecified; F41.9 Anxiety disorder, unspecified; K21.9 Gastro-esophageal reflux disease without esophagitis; Z88.6 Allergy status to analgesic agent; Z88.2 Allergy status to sulfonamides
CPT/HCPCS: 36415; 76856; 80053; 81001; 83605; 83690; 83735; 85025; 87040; 87081; 87086; 96361; 96365; 96375; 99291; J0696; J1170; J1650; J2060; J2270; J2405; J7060; Q9967

== ENCOUNTER 2023-08-24 18:04 | Emergency (ER) | payer OTHER ==
[~2023-08-24] VITALS: Ht 167.6 cm; Wt 93.6 kg
[~2023-08-24 18:04] MED LIST changes: -ACET-8905 PO; -BEN10 PO; +CEFP200T20 PO; -CEPH-588 PO; -CEPH500T PO; -CIPR500T4 PO; -FAMO-90 PO; -GABA300C PO; -HYDR-5080 PO; -LOPE-231 PO; -LOPE1TAB14 PO; -NAPR-1871 PO; -ONDA-188 PO; -ONDA-188 SL; -ONDA8TAB87 PO; -PROM12.512 PO; +TRAM50TA3 PO
[2023-08-24 18:43] VITALS: BP 149/104; PULSE 117; RESP 20; TEMP 97.7; O2SAT 100
[2023-08-24 19:32] LABS: BASOPHILS # (AUTO) 0.1 K/uL (0.00-0.22); BASOPHILS % (AUTO) 0.5 % (0.0-2.0); EOSINOPHILS % (AUTO) 0.3 % (0.0-4.0); HEMATOCRIT 45.4 % (36-48); HEMOGLOBIN 15.6 g/dL (12.0-16.0); LYMPHOCYTES # (AUTO) 2.6 K/uL (2.5-16.5); LYMPHOCYTES % (AUTO) 18.2 % (20.5-51.1); MEAN CORPUSCULAR HEMOGLOBIN 30 pg (27-31); MEAN CORPUSCULAR HGB CONC 34 g/dL (33-37); MEAN CORPUSCULAR VOLUME 85.9 fL (80-94); MONOCYTES # (AUTO) 1.1 K/uL (0.8-1.0); MONOCYTES % (AUTO) 7.4 % (1.7-9.3); NEUTROPHILS # (AUTO) 10.7 K/uL (1.8-7.7); NEUTROPHILS % (AUTO) 73.6 % (42.2-75.2); PLATELET COUNT (AUTO) 404 K/uL (140-450); RED BLOOD CELL COUNT(AUTO) 5.29 MIL/uL (4.20-5.40); RED CELL DISTRIBUTION WIDTH 13.6 % (11.6-13.7); WHITE BLOOD COUNT (AUTO) 14.5 K/uL (4.8-10.8)
[2023-08-24 19:55] LABS: ALBUMIN 4.6 g/dL (3.4-5.0); ANION GAP 15.7 (8-16); CALCIUM 10.2 mg/dL (8.5-10.1); CARBON DIOXIDE 23.8 mmol/L (21-32); CREATININE 0.9 mg/dL (0.6-1.3); POTASSIUM 3.5 mmol/L (3.5-5.1); TOTAL BILIRUBIN 1.3 mg/dL (0.0-1.0); TOTAL PROTEIN, SERUM 8.6 g/dL (6.4-8.2)
[2023-08-24 20:12] LABS: APPEARANCE,URINE CLEAR (CLEAR); BILIRUBIN,URINE NEGATIVE (NEGATIVE); BLOOD, URINE NEGATIVE (NEGATIVE); COLOR,URINE YELLOW (YELLOW); LEUKOCYTE ESTERASE ,URINE NEGATIVE (NEGATIVE); NITRITE, URINE NEGATIVE (NEGATIVE); PROTEIN,URINE TRACE (NEGATIVE); UGLUCOSE NEGATIVE (NEGATIVE)
[2023-08-24] MEDS ORDERED: MORPHINE SULFATE 10 MG/ML VIAL IVP ONE (21:00)
[2023-08-24] MEDS ORDERED: ONDANSETRON 4 MG/2 ML VIAL IVP ONE (21:10)
[2023-08-24] MEDS ORDERED: ONDANSETRON 4 MG/2 ML VIAL ONE (21:10)
[2023-08-24 21:39] VITALS: BP 141/96; PULSE 88; RESP 11; O2SAT 100
[2023-08-24] MEDS ORDERED: NITR100C7 PO (21:51)
[2023-08-24] MEDS ORDERED: ACET-11169 PO (21:53)
== END 2023-08-24 22:25 | disposition home or self-care (01) ==
LOC: MED 18:04
DX: R10.30 Lower abdominal pain, unspecified (principal); R11.10 Vomiting, unspecified; R19.7 Diarrhea, unspecified; K21.9 Gastro-esophageal reflux disease without esophagitis; Z88.2 Allergy status to sulfonamides; Z88.6 Allergy status to analgesic agent; Z88.8 Allergy status to other drugs, medicaments and biological substances; Z90.710 Acquired absence of both cervix and uterus; Z79.899 Other long term (current) drug therapy
CPT/HCPCS: 36415; 74177; 80053; 81003; 81025; 83690; 85025; 96374; 96375; 99285; J2270; J2405; Q9967

== ENCOUNTER 2023-11-03 20:46 | Emergency (ER) | payer OTHER ==
[~2023-11-03] VITALS: Ht 167.6 cm; Wt 95.3 kg
[~2023-11-03 20:46] MED LIST changes: +ACET-11169 PO; +NITR100C7 PO
[2023-11-03 21:17] VITALS: BP 121/106; PULSE 131; RESP 16; TEMP 98.1; O2SAT 100
[2023-11-03 22:07] LABS: APPEARANCE,URINE CLEAR (CLEAR); BILIRUBIN,URINE NEGATIVE (NEGATIVE); BLOOD, URINE NEGATIVE (NEGATIVE); COLOR,URINE YELLOW (YELLOW); LEUKOCYTE ESTERASE ,URINE NEGATIVE (NEGATIVE); NITRITE, URINE NEGATIVE (NEGATIVE); PROTEIN,URINE NEGATIVE (NEGATIVE); UGLUCOSE NEGATIVE (NEGATIVE); UROBILINOGEN,URINE 0.2 EU/dL (0.2 - 1)
[2023-11-03 22:37] VITALS: RESP 15
[2023-11-03 22:39] VITALS: O2SAT 99
[2023-11-03] MEDS ORDERED: NACL 0.9% 1,000 ML IV SCH (23:25)
[2023-11-03] MEDS ORDERED: FAMOTIDINE 20 MG/2 ML VIAL IVP ONE (23:25)
[2023-11-03] MEDS ORDERED: METOCLOPRAMIDE 10 MG/2 ML INJ VIAL IVP ONE (23:25)
[2023-11-03] MEDS ORDERED: diphenhydrAMINE 50 MG/ML VIAL IVP ONE (23:25)
[2023-11-03 23:56] LABS: BASOPHILS # (AUTO) 0.1 K/uL (0.00-0.22); BASOPHILS % (AUTO) 0.6 % (0.0-2.0); EOSINOPHILS # (AUTO) 0.1 K/uL (0-0.4); EOSINOPHILS % (AUTO) 1.1 % (0.0-4.0); HEMOGLOBIN 15.1 g/dL (12.0-16.0); LYMPHOCYTES # (AUTO) 2.5 K/uL (2.5-16.5); LYMPHOCYTES % (AUTO) 25.5 % (20.5-51.1); MEAN CORPUSCULAR HEMOGLOBIN 30 pg (27-31); MEAN CORPUSCULAR HGB CONC 34 g/dL (33-37); MEAN CORPUSCULAR VOLUME 88.5 fL (80-94); MONOCYTES # (AUTO) 0.8 K/uL (0.8-1.0); MONOCYTES % (AUTO) 8.4 % (1.7-9.3); NEUTROPHILS # (AUTO) 6.3 K/uL (1.8-7.7); NEUTROPHILS % (AUTO) 64.4 % (42.2-75.2); PLATELET COUNT (AUTO) 342 K/uL (140-450); RED BLOOD CELL COUNT(AUTO) 4.98 MIL/uL (4.20-5.40); RED CELL DISTRIBUTION WIDTH 14.4 % (11.6-13.7); WHITE BLOOD COUNT (AUTO) 9.8 K/uL (4.8-10.8)
[2023-11-04 00:18] VITALS: BP 115/73; PULSE 106
[2023-11-04 00:19] LABS: LACTIC ACID 1.1 mmol/L (0.4-2.0)
[2023-11-04] MEDS ORDERED: MORPHINE SULFATE 4 MG/ML SYR IVP ONE (00:20)
[2023-11-04] MEDS ORDERED: ONDANSETRON 4 MG/2 ML VIAL IVP ONE (00:20)
[2023-11-04 00:24] LABS: BILIRUBIN,DIRECT 0.1 mg/dL (0.0-0.3); TOTAL BILIRUBIN 0.7 mg/dL (0.0-1.0)
[2023-11-04 00:25] LABS: ALKALINE PHOSPHATASE 74 U/L (50-136); ASPARTATE AMINOTRANSFERASE 31 U/L (15-37); CREATINE KINASE, TOTAL 36 U/L (26-192); TOTAL PROTEIN, SERUM 7.6 g/dL (6.4-8.2)
[2023-11-04 00:26] LABS: ALANINE AMINOTRANSFERASE 44 U/L (12-78); ALBUMIN 4.2 g/dL (3.4-5.0)
[2023-11-04 01:18] VITALS: O2SAT 99
[2023-11-04 01:29] LABS: ANION GAP 12.3 (8-16); CARBON DIOXIDE 26.4 mmol/L (21-32); POTASSIUM 3.7 mmol/L (3.5-5.1)
[2023-11-04 01:30] LABS: CALCIUM 8.8 mg/dL (8.5-10.1); CREATININE 0.7 mg/dL (0.6-1.3)
[2023-11-04 02:09] LABS: FLU A ANTIGEN negative (NEGATIVE); FLU B ANTIGEN NEGATIVE (NEGATIVE)
[2023-11-04] MEDS ORDERED: LORazepam 1 MG TAB PO ONE (02:40)
[2023-11-04] MEDS ORDERED: CIPR250T6 PO (03:40)
[2023-11-04] MEDS ORDERED: FAMO-90 PO (03:40)
[2023-11-04] MEDS ORDERED: LORazepam 1 MG TAB ONE (03:44)
== END 2023-11-04 03:50 | disposition home or self-care (01) ==
LOC: MED 20:46
DX: R11.10 Vomiting, unspecified (principal); R19.7 Diarrhea, unspecified; R10.84 Generalized abdominal pain; Z20.822 Contact with and (suspected) exposure to COVID-19; K21.9 Gastro-esophageal reflux disease without esophagitis; F41.9 Anxiety disorder, unspecified; F32.9 Major depressive disorder, single episode, unspecified; Z90.49 Acquired absence of other specified parts of digestive tract; Z90.710 Acquired absence of both cervix and uterus; Z79.899 Other long term (current) drug therapy; Z79.2 Long term (current) use of antibiotics; Z88.6 Allergy status to analgesic agent; Z88.2 Allergy status to sulfonamides; Z88.8 Allergy status to other drugs, medicaments and biological substances
CPT/HCPCS: 36415; 71045; 74176; 80048; 80076; 81003; 81025; 82550; 83605; 84484; 85025; 87040; 87426; 87804; 93005; 96361; 96374; 96375; 99285; J1200; J2270; J2405; J2765; J3490; J7030

== ENCOUNTER 2023-11-05 19:07 | Emergency (ER) | payer OTHER ==
[~2023-11-05] VITALS: Ht 167.6 cm; Wt 95.3 kg
[~2023-11-05 19:07] MED LIST changes: +CIPR250T6 PO; +FAMO-90 PO
[2023-11-05 20:24] VITALS: BP 120/104; PULSE 138; RESP 24; TEMP 98; O2SAT 98
[2023-11-05 21:46] LABS: APPEARANCE,URINE CLEAR (CLEAR); BILIRUBIN,URINE NEGATIVE (NEGATIVE); BLOOD, URINE NEGATIVE (NEGATIVE); COLOR,URINE YELLOW (YELLOW); LEUKOCYTE ESTERASE ,URINE NEGATIVE (NEGATIVE); NITRITE, URINE NEGATIVE (NEGATIVE); PROTEIN,URINE NEGATIVE (NEGATIVE); UGLUCOSE NEGATIVE (NEGATIVE); UROBILINOGEN,URINE 0.2 EU/dL (0.2 - 1)
[2023-11-05 21:52] LABS: BASOPHILS % (AUTO) 0.3 % (0.0-2.0); EOSINOPHILS # (AUTO) 0.2 K/uL (0-0.4); EOSINOPHILS % (AUTO) 1.3 % (0.0-4.0); HEMOGLOBIN 13.7 g/dL (12.0-16.0); LYMPHOCYTES # (AUTO) 2.4 K/uL (2.5-16.5); MEAN CORPUSCULAR HEMOGLOBIN 29 pg (27-31); MEAN CORPUSCULAR HGB CONC 34 g/dL (33-37); MEAN CORPUSCULAR VOLUME 87.8 fL (80-94); MONOCYTES # (AUTO) 0.9 K/uL (0.8-1.0); MONOCYTES % (AUTO) 7.9 % (1.7-9.3); NEUTROPHILS # (AUTO) 8.1 K/uL (1.8-7.7); NEUTROPHILS % (AUTO) 69.5 % (42.2-75.2); PLATELET COUNT (AUTO) 346 K/uL (140-450); RED BLOOD CELL COUNT(AUTO) 4.68 MIL/uL (4.20-5.40); RED CELL DISTRIBUTION WIDTH 14.1 % (11.6-13.7); WHITE BLOOD COUNT (AUTO) 11.7 K/uL (4.8-10.8)
[2023-11-05 21:58] VITALS: BP 115/90; PULSE 124; RESP 20; TEMP 98.1
[2023-11-05 22:03] VITALS: O2SAT 98
[2023-11-05 22:07] LABS: ALBUMIN 3.5 g/dL (3.4-5.0); ANION GAP 9.2 (8-16); CALCIUM 8.9 mg/dL (8.5-10.1); CARBON DIOXIDE 29.5 mmol/L (21-32); CREATININE 0.7 mg/dL (0.6-1.3); POTASSIUM 3.7 mmol/L (3.5-5.1); TOTAL BILIRUBIN 0.5 mg/dL (0.0-1.0); TOTAL PROTEIN, SERUM 7.2 g/dL (6.4-8.2)
[2023-11-05] MEDS ORDERED: NACL 0.9% 1,000 ML IV ONE (22:30)
[2023-11-05] MEDS ORDERED: MORPHINE SULFATE 4 MG/ML SYR IVP ONE ×2 (22:30→23:50)
[2023-11-05] MEDS ORDERED: ONDANSETRON 4 MG/2 ML VIAL IVP ONE (22:30)
[2023-11-05] MEDS ORDERED: BACLOFEN 10 MG TAB PO SCH (22:30)
[2023-11-05] MEDS ORDERED: LORazepam 2 MG/ML VIAL IVP ONE (23:50)
[2023-11-06] MEDS ORDERED: ACET-2619 PO (00:34)
[2023-11-06] MEDS ORDERED: LOPE1TAB14 PO (00:34)
[2023-11-06] MEDS ORDERED: ONDA-188 PO (00:34)
== END 2023-11-06 01:00 | disposition home or self-care (01) ==
LOC: MED 19:07
DX: A08.4 Viral intestinal infection, unspecified (principal); N80.9 Endometriosis, unspecified; K21.9 Gastro-esophageal reflux disease without esophagitis; Z88.5 Allergy status to narcotic agent; Z88.8 Allergy status to other drugs, medicaments and biological substances; Z88.2 Allergy status to sulfonamides; Z79.899 Other long term (current) drug therapy; Z90.49 Acquired absence of other specified parts of digestive tract
CPT/HCPCS: 36415; 80053; 81003; 81025; 83690; 85025; 96361; 96374; 96375; 96376; 99284; J2060; J2270; J2405; J7030

== ENCOUNTER 2023-11-13 02:41 | Emergency (ER) | payer OTHER ==
[~2023-11-13] VITALS: Ht 162.6 cm; Wt 93.4 kg
[~2023-11-13 02:41] MED LIST changes: +ACET-2619 PO; +LOPE1TAB14 PO; +ONDA-188 PO
[2023-11-13 03:00] VITALS: BP 121/90; PULSE 140; RESP 15; TEMP 97.8; O2SAT 100
[2023-11-13] MEDS ORDERED: ONDANSETRON 4 MG/2 ML VIAL IVP ONE (03:10)
[2023-11-13] MEDS ORDERED: NACL 0.9% 1,000 ML IV ONE (03:10)
[2023-11-13] MEDS ORDERED: METOCLOPRAMIDE 10 MG/2 ML INJ VIAL IVP ONE (04:25)
[2023-11-13] MEDS ORDERED: diphenhydrAMINE 50 MG/ML VIAL IVP ONE (04:25)
[2023-11-13] MEDS ORDERED: MORPHINE SULFATE 4 MG/ML SYR IVP ONE (04:25)
[2023-11-13] MEDS ORDERED: CIPR500T4 PO (05:50)
[2023-11-13] MEDS ORDERED: METO-485 PO (05:50)
== END 2023-11-13 06:00 | disposition home or self-care (01) ==
LOC: MED 02:41
DX: R10.13 Epigastric pain (principal); R11.2 Nausea with vomiting, unspecified; R19.7 Diarrhea, unspecified; K21.9 Gastro-esophageal reflux disease without esophagitis; Z88.2 Allergy status to sulfonamides; Z88.5 Allergy status to narcotic agent; Z88.8 Allergy status to other drugs, medicaments and biological substances; Z79.899 Other long term (current) drug therapy; Z90.49 Acquired absence of other specified parts of digestive tract; Z90.710 Acquired absence of both cervix and uterus
CPT/HCPCS: 81002; 81025; 96361; 96374; 96375; 99284; J1200; J2270; J2405; J2765